=== PATIENT | female | born 1940 | race African-American/Black ===

== ENCOUNTER → 2016-07-31 | Outpatient (CLI) | payer OTHER ==
[2016-07-31 11:31] LABS: Basophils # (auto) 0 uL; Eosinophils # (auto) 0.1 uL; Eosinophils % (auto) 1.7 % (0.0-7.0); Hematocrit 39.9 % (36.0-46.0); Mean Corpuscular Hgb Conc. 32.5 g/dL (32.0-36.0); Mean Corpuscular Volume 89.1 fL (80.0-100.0); Mean Platelet Volume 8.3 fL (7.4-10.4); Monocytes # (auto) 0.2 uL; Monocytes % (auto) 8.5 % (0.0-12.0); Neutrophils # (auto) 1.6 uL; Neutrophils % (auto) 53.8 % (37.0-80.0); Platelet Count (auto) 240 10^3/uL (140-450); Red Cell Distribution Width 13.2 % (11.6-16.0); SUSPECT VIEW TRANSMISSION
== END | disposition home or self-care (01) ==
LOC: LAB 10:47
PROVIDERS: ATTEND Internal Medicine
DX: E88.09 Other disorders of plasma-protein metabolism, not elsewhere classified (principal)
CPT/HCPCS: 36415; 82232; 82378; 82784; 83615; 83883; 85025; 85652; 86334; 86335

== ENCOUNTER → 2016-08-14 | Outpatient (CLI) | payer OTHER | END | disposition home or self-care (01) | LOC: LAB 11:02 | PROVIDERS: ATTEND Internal Medicine | DX: E88.09 Other disorders of plasma-protein metabolism, not elsewhere classified (principal) | CPT/HCPCS: 84156 ==

== ENCOUNTER → 2016-09-11 | Outpatient (CLI) | payer OTHER | END | disposition home or self-care (01) | LOC: LAB 10:00 | PROVIDERS: ATTEND Internal Medicine | DX: D75.89 Other specified diseases of blood and blood-forming organs (principal) | CPT/HCPCS: 85097; 88360 ==

== ENCOUNTER → 2016-11-12 | Outpatient (CLI) | payer OTHER | END | disposition home or self-care (01) | LOC: XY 08:02 | PROVIDERS: ATTEND Internal Medicine | DX: R51 Headache (principal) | CPT/HCPCS: 78306; A9503 ==

== ENCOUNTER → 2017-02-17 | Outpatient (CLI) | payer OTHER ==
[2017-02-17 10:25] LABS: Basophils # (auto) 0 uL; Basophils % (auto) 1.3 % (0.0-2.0); CONDITION Y; Eosinophils # (auto) 0.1 uL; Eosinophils % (auto) 1.6 % (0.0-7.0); Hematocrit 37.8 % (36.0-46.0); Hemoglobin 12.4 g/dL (12.2-16.2); Lymphocytes # (auto) 1.1 uL; Lymphocytes % (auto) 33.5 % (10.0-50.0); Mean Corpuscular Hemoglobin 29.6 pg (28.0-32.0); Mean Corpuscular Hgb Conc. 32.8 g/dL (32.0-36.0); Mean Corpuscular Volume 90.4 fL (80.0-100.0); Mean Platelet Volume 8.4 fL (7.4-10.4); Monocytes # (auto) 0.2 uL; Monocytes % (auto) 7.3 % (0.0-12.0); Neutrophils # (auto) 1.9 uL; Neutrophils % (auto) 56.3 % (37.0-80.0); Platelet Count (auto) 246 10^3/uL (140-450); Red Cell Distribution Width 13.3 % (11.6-16.0); White Blood Cell 3.3 10^3/uL (4.4-10.8)
[2017-02-17 10:46] LABS: Albumin 3.8 g/dL (3.4-5.0); BUN/Creatinine Ratio 30.9; Bilirubin, Total 0.5 mg/dL (0.2-1.0); Calcium 8.9 mg/dL (8.5-10.1); Potassium 3.8 mmol/L (3.5-5.1); Total Protein 8.4 g/dL (6.4-8.2)
== END | disposition home or self-care (01) ==
LOC: LAB 09:57
PROVIDERS: ATTEND Internal Medicine
DX: D47.2 Monoclonal gammopathy (principal)
CPT/HCPCS: 36415; 80053; 82232; 82784; 83615; 83883; 85025

== ENCOUNTER → 2017-02-25 | Outpatient (CLI) | payer OTHER ==
[2017-02-25 09:22] LABS: Basophils # (auto) 0 uL; Basophils % (auto) 1.2 % (0.0-2.0); CONDITION Y; Eosinophils # (auto) 0.1 uL; Eosinophils % (auto) 2.2 % (0.0-7.0); Hematocrit 37.6 % (36.0-46.0); Hemoglobin 12.3 g/dL (12.2-16.2); Lymphocytes % (auto) 34.8 % (10.0-50.0); Mean Corpuscular Hemoglobin 29.5 pg (28.0-32.0); Mean Corpuscular Hgb Conc. 32.7 g/dL (32.0-36.0); Mean Corpuscular Volume 90.3 fL (80.0-100.0); Mean Platelet Volume 8.4 fL (7.4-10.4); Monocytes # (auto) 0.2 uL; Monocytes % (auto) 8.2 % (0.0-12.0); Neutrophils # (auto) 1.5 uL; Neutrophils % (auto) 53.6 % (37.0-80.0); Platelet Count (auto) 242 10^3/uL (140-450); Red Cell Distribution Width 13.3 % (11.6-16.0); SUSPECT SEE PRINTOUT; White Blood Cell 2.8 10^3/uL (4.4-10.8)
[2017-02-25 09:56] LABS: Albumin 3.8 g/dL (3.4-5.0); BUN/Creatinine Ratio 20.3; Bilirubin, Total 0.6 mg/dL (0.2-1.0); Calcium 8.7 mg/dL (8.5-10.1); Potassium 3.7 mmol/L (3.5-5.1); Total Protein 8.2 g/dL (6.4-8.2)
== END | disposition home or self-care (01) ==
LOC: LAB 08:04
PROVIDERS: ATTEND Internal Medicine
DX: R68.81 Early satiety (principal); E78.00 Pure hypercholesterolemia, unspecified
CPT/HCPCS: 36415; 80053; 80061; 84439; 84443; 85025

== ENCOUNTER → 2017-07-09 | Outpatient (CLI) | payer OTHER ==
[2017-07-09 11:00] LABS: Basophils # (auto) 0 uL; Basophils % (auto) 1.2 % (0.0-2.0); Eosinophils # (auto) 0 uL; Hematocrit 40.3 % (36.0-46.0); Lymphocytes # (auto) 0.9 uL; Lymphocytes % (auto) 23.5 % (10.0-50.0); Mean Corpuscular Hemoglobin 29.7 pg (28.0-32.0); Mean Corpuscular Hgb Conc. 32.3 g/dL (32.0-36.0); Mean Corpuscular Volume 91.8 fL (80.0-100.0); Monocytes # (auto) 0.2 uL; Monocytes % (auto) 5.5 % (0.0-12.0); Neutrophils # (auto) 2.6 uL; Neutrophils % (auto) 68.8 % (37.0-80.0); Platelet Count (auto) 244 10^3/uL (140-450); Red Cell Distribution Width 12.9 % (11.8-14.3); White Blood Cell 3.7 10^3/uL (4.4-10.8)
[2017-07-09 11:39] LABS: Albumin 3.9 g/dL (3.4-5.0); BUN/Creatinine Ratio 19.4; Bilirubin, Total 0.4 mg/dL (0.2-1.0); Calcium 8.8 mg/dL (8.5-10.1); Potassium 3.5 mmol/L (3.5-5.1); Total Protein 8.9 g/dL (6.4-8.2)
[2017-07-10 09:07] LABS: Kappa Lite Chain Free Serum 50.3 mg/L (3.3-19.4); Lambda Lite Chains Free Serum 14.3 mg/L (5.7-26.3)
== END | disposition home or self-care (01) ==
LOC: LAB 10:18
PROVIDERS: ATTEND Internal Medicine
DX: D47.2 Monoclonal gammopathy (principal)
CPT/HCPCS: 36415; 80053; 82232; 82784; 83615; 83883; 85025

== ENCOUNTER 2017-10-09 07:46 | Inpatient (IN) | payer OTHER ==
[~2017-10-09] VITALS: Ht 157.5 cm; Wt 51.9 kg
[2017-10-09] MEDS ORDERED: SODIUM CHLORIDE 0.9% 1,000 ML IV ONE (07:55)
[2017-10-09] MEDS ORDERED: LORazepam 2MG/ML-1ML VIAL IV ONE (08:00)
[2017-10-09] MEDS ORDERED: cloNIDine HCL 0.1 MG TAB PO ONE (08:45)
[2017-10-09 08:47] LABS: Basophils # (auto) 0 uL; Basophils % (auto) 1.5 % (0.0-2.0); Eosinophils # (auto) 0 uL; Eosinophils % (auto) 1.2 % (0.0-7.0); Hematocrit 42.8 % (36.0-46.0); Hemoglobin 13.8 g/dL (12.2-16.2); Lymphocytes # (auto) 0.7 uL; Lymphocytes % (auto) 28.9 % (10.0-50.0); Mean Corpuscular Hemoglobin 29.3 pg (28.0-32.0); Mean Corpuscular Hgb Conc. 32.3 g/dL (32.0-36.0); Mean Corpuscular Volume 90.8 fL (80.0-100.0); Monocytes # (auto) 0.2 uL; Monocytes % (auto) 7.4 % (0.0-12.0); Neutrophils # (auto) 1.5 uL; Nucleated Red Blood Cells % 0.2 %; Platelet Count (auto) 243 10^3/uL (140-450); Red Blood Cells 4.72 10^6/uL (4.0-5.20); Red Cell Distribution Width 12.8 % (11.8-14.3); White Blood Cell 2.5 10^3/uL (4.4-10.8)
[2017-10-09 08:50] LABS: Urine Amorphous Crystal FEW /hpf (None Seen); Urine Bacteria NONE SEEN /hpf (None Seen); Urine Blood Negative /uL (Negative); Urine Mucus FEW (None Seen); Urine Specific Gravity 1.011 (1.001-1.035); Urine WBC <1 /hpf (0 - 5)
[2017-10-09 08:59] LABS: INR 0.97 (0.9-1.15); Prothrombin Time 10.6 sec (9.37-12.3)
[2017-10-09 09:06] LABS: Alanine Aminotransferase 20 U/L (13-56); Albumin 4.1 g/dL (3.4-5.0); Alkaline Phosphatase 82 U/L (45-117); Anion Gap 10 (5-15); Aspartate Aminotransferase 18 U/L (15-37); BUN/Creatinine Ratio 16.1; Bilirubin, Total 0.6 mg/dL (0.2-1.0); Blood Urea Nitrogen 10 mg/dL (7-18); Calcium 8.9 mg/dL (8.5-10.1); Carbon Dioxide 24 mmol/L (21-32); Chloride 104 mmol/L (98-107); GFR African American 121 mL/min; GFR Non-African American 100 mL/min; Glucose 135 mg/dL (74-106); Magnesium 2.4 mg/dL (1.6-2.6); Potassium 3.5 mmol/L (3.5-5.1); Sodium 138 mmol/L (136-145); Total Protein 9.1 g/dL (6.4-8.2)
[2017-10-09] MEDS ORDERED: NITROGLYCERIN 0.4 MG SL TAB SL PRN (09:30)
[2017-10-09] MEDS ORDERED: MORPHINE SULFATE 4 MG/ML SYR/VIAL IV PRN ×2 (09:30)
[2017-10-09] MEDS ORDERED: HYDROcodone-ACET 5/325MG TAB PO PRN (09:30)
[2017-10-09] MEDS ORDERED: LACTULOSE 20Gm/30ML SOLN PO PRN (09:30)
[2017-10-09] MEDS ORDERED: DILTIAZEM HCL 60 MG TAB PO ONE (09:30)
[2017-10-09] MEDS ORDERED: ACETAMINOPHEN 500 MG TAB PO PRN (09:30)
[2017-10-09] MEDS ORDERED: LORazepam 0.5 MG TAB PO PRN (09:30)
[2017-10-09] MEDS ORDERED: TEMAZEPAM 15 MG CAP PO PRN (09:30)
[2017-10-09] MEDS ORDERED: PROMETHAZINE HCL 25 MG/ML 1ML IV PRN (09:30)
[2017-10-09] MEDS: ENOXAPARIN SOD 40 MG/0.4 ML SYRINGE SC SCH (09:53)
[2017-10-09] MEDS: LABETALOL HCL 5 MG/ML ML 20ML VIAL IV PRN (09:54)
[2017-10-09] MEDS: ASPirin 81 mg TAB PO SCH (09:57)
[2017-10-09] MEDS ORDERED: DILTIAZEM HCL 120MG ER CAP PO SCH (10:00)
[2017-10-09 10:08] LABS: Folate (Folic Acid) 17.59 ng/mL (5.38-24)
[2017-10-09 10:12] LABS: Cholesterol 233 mg/dL (< 200); Creatine Kinase IFCC 54 U/L (26-192); HDL Cholesterol 81 mg/dL (40-59); LDL Cholesterol 146 mg/dL (< 100); Triglycerides 91 mg/dL (< 150)
[2017-10-09] MEDS ORDERED: DILT-5 PO (12:48)
[2017-10-09] MEDS ORDERED: BRIM0.2S17 RIGHTEYE (15:24)
[2017-10-09] MEDS ORDERED: DORZ1SOL2 RIGHTEYE (15:24)
[2017-10-09 20:30] VITALS: BP 153/81
[2017-10-09] MEDS: ATORVASTATIN 20 MG TAB PO SCH (21:37)
[2017-10-09 22:00] VITALS: BP 147/81
[2017-10-10 05:00] VITALS: BP 157/89
[2017-10-10] MEDS ORDERED: BRIMONIDINE 0.2% OPTH Soln 5ml RIGHTEYE SCH (06:00)
[2017-10-10] MEDS: BRIMONIDINE 0.2% OPTH Soln 5ml RIGHTEYE SCH ×3 (08:47→21:44)
[2017-10-10] MEDS: DORZOLAM-TIMOLOL(2/0.5%) OPTH(EYE) SOLN 10ML RIGHTEYE SCH ×2 (08:48→21:44)
[2017-10-10 09:00] VITALS: BP 154/74
[2017-10-10] MEDS: ENOXAPARIN SOD 40 MG/0.4 ML SYRINGE SC SCH (09:58)
[2017-10-10] MEDS: ASPirin 81 mg TAB PO SCH (09:58)
[2017-10-10] MEDS: DILTIAZEM HCL 120MG ER CAP PO SCH (09:59)
[2017-10-10] MEDS ORDERED: DORZOLAM-TIMOLOL(2/0.5%) OPTH(EYE) SOLN 10ML RIGHTEYE SCH (10:00)
[2017-10-10] MEDS ORDERED: MECLIZINE HCL 25 MG TAB PO PRN (11:15)
[2017-10-10] MEDS ORDERED: MECLIZINE HCL 25 MG TAB PO ONE (11:15)
[2017-10-10 13:00] VITALS: BP 150/83
[2017-10-10 16:43] VITALS: BP 139/51
[2017-10-10 20:00] VITALS: BP 163/77
[2017-10-10 21:35] VITALS: BP 163/77
[2017-10-10] MEDS: ATORVASTATIN 20 MG TAB PO SCH (21:44)
[2017-10-10] MEDS: LABETALOL HCL 5 MG/ML ML 20ML VIAL IV PRN (23:29)
[2017-10-11 05:00] VITALS: BP 148/69
[2017-10-11 08:40] VITALS: BP 161/82
[2017-10-11] MEDS: BRIMONIDINE 0.2% OPTH Soln 5ml RIGHTEYE SCH ×3 (08:59→21:34)
[2017-10-11] MEDS: DORZOLAM-TIMOLOL(2/0.5%) OPTH(EYE) SOLN 10ML RIGHTEYE SCH ×2 (08:59→21:34)
[2017-10-11] MEDS: ENOXAPARIN SOD 40 MG/0.4 ML SYRINGE SC SCH (09:46)
[2017-10-11] MEDS: ASPirin 81 mg TAB PO SCH (09:46)
[2017-10-11] MEDS: DILTIAZEM HCL 120MG ER CAP PO SCH (10:25)
[2017-10-11 13:40] VITALS: BP 158/78
[2017-10-11 16:27] VITALS: BP 143/72
[2017-10-11 20:00] VITALS: BP 147/70
[2017-10-11] MEDS: ATORVASTATIN 20 MG TAB PO SCH (21:34)
[2017-10-11 21:37] VITALS: BP 147/70
[2017-10-12 04:55] VITALS: BP 145/78
[2017-10-12 09:08] VITALS: BP 152/78
[2017-10-12] MEDS: BRIMONIDINE 0.2% OPTH Soln 5ml RIGHTEYE SCH ×3 (09:32→22:06)
[2017-10-12] MEDS: DORZOLAM-TIMOLOL(2/0.5%) OPTH(EYE) SOLN 10ML RIGHTEYE SCH ×2 (09:32→22:07)
[2017-10-12] MEDS: ASPirin 81 mg TAB PO SCH (09:33)
[2017-10-12] MEDS: DILTIAZEM HCL 120MG ER CAP PO SCH (09:33)
[2017-10-12] MEDS: NIFEdipine ER 30 MG TAB PO SCH (09:34)
[2017-10-12] MEDS: ENOXAPARIN SOD 40 MG/0.4 ML SYRINGE SC SCH (09:35)
[2017-10-12 10:29] LABS: Free T3 2.91 pg/mL (2.3-4.2); Free T4 (Free Thyroxine) 0.96 ng/dL (0.89-1.76)
[2017-10-12 13:00] VITALS: BP 145/77
[2017-10-12 17:26] VITALS: BP 121/64
[2017-10-12 21:59] VITALS: BP 131/69
[2017-10-12] MEDS: ATORVASTATIN 20 MG TAB PO SCH (22:06)
[2017-10-13 04:56] VITALS: BP 130/66
[2017-10-13 06:24] LABS: Basophils # (auto) 0.1 uL; Basophils % (auto) 1.6 % (0.0-2.0); Eosinophils # (auto) 0.1 uL; Eosinophils % (auto) 2.3 % (0.0-7.0); Hematocrit 39.1 % (36.0-46.0); Hemoglobin 12.7 g/dL (12.2-16.2); Lymphocytes # (auto) 0.9 uL; Lymphocytes % (auto) 29.3 % (10.0-50.0); Mean Corpuscular Hemoglobin 29.2 pg (28.0-32.0); Mean Corpuscular Hgb Conc. 32.4 g/dL (32.0-36.0); Mean Corpuscular Volume 90.1 fL (80.0-100.0); Monocytes # (auto) 0.4 uL; Monocytes % (auto) 11.3 % (0.0-12.0); Neutrophils # (auto) 1.7 uL; Neutrophils % (auto) 55.5 % (37.0-80.0); Nucleated Red Blood Cells % 0.2 %; Platelet Count (auto) 242 10^3/uL (140-450); Red Blood Cells 4.34 10^6/uL (4.0-5.20); Red Cell Distribution Width 12.7 % (11.8-14.3); White Blood Cell 3.2 10^3/uL (4.4-10.8)
[2017-10-13 07:05] LABS: Albumin 3.5 g/dL (3.4-5.0); BUN/Creatinine Ratio 17.3; Bilirubin, Total 0.5 mg/dL (0.2-1.0); Calcium 8.4 mg/dL (8.5-10.1); Potassium 3.7 mmol/L (3.5-5.1); Total Protein 7.7 g/dL (6.4-8.2)
[2017-10-13] MEDS: BRIMONIDINE 0.2% OPTH Soln 5ml RIGHTEYE SCH ×2 (07:54→14:00)
[2017-10-13] MEDS: DORZOLAM-TIMOLOL(2/0.5%) OPTH(EYE) SOLN 10ML RIGHTEYE SCH (07:54)
[2017-10-13 08:00] VITALS: BP 142/75
[2017-10-13 08:40] VITALS: BP 142/75
[2017-10-13] MEDS: ASPirin 81 mg TAB PO SCH (09:08)
[2017-10-13] MEDS: NIFEdipine ER 30 MG TAB PO SCH (09:09)
[2017-10-13] MEDS: DILTIAZEM HCL 120MG ER CAP PO SCH (09:09)
[2017-10-13] MEDS: ENOXAPARIN SOD 40 MG/0.4 ML SYRINGE SC SCH (09:10)
[2017-10-13 11:11] VITALS: BP 142/75
[2017-10-13 12:21] VITALS: BP 128/68
== END 2017-10-13 14:20 | disposition home or self-care (01) | DRG 292 ==
LOC: EDUNIT# 07:46 → EDBD 07:46 → ER 07:46 → TELE 07:47 → TELE-CENTR 19:44
PROVIDERS: ADMIT Internal Medicine; ATTEND Internal Medicine
DX: I11.0 Hypertensive heart disease with heart failure (principal); H33.22 Serous retinal detachment, left eye; E78.5 Hyperlipidemia, unspecified; J98.11 Atelectasis; H83.09 Labyrinthitis, unspecified ear; I50.30 Unspecified diastolic (congestive) heart failure; I16.0 Hypertensive urgency; H40.9 Unspecified glaucoma; I70.0 Atherosclerosis of aorta; I08.0 Rheumatic disorders of both mitral and aortic valves; R26.9 Unspecified abnormalities of gait and mobility; H54.62 Unqualified visual loss, left eye, normal vision right eye; H91.90 Unspecified hearing loss, unspecified ear; Z79.899 Other long term (current) drug therapy; Z79.82 Long term (current) use of aspirin; Z90.49 Acquired absence of other specified parts of digestive tract
CPT/HCPCS: 36415; 70450; 70545; 70551; 71045; 80053; 80061; 81001; 82550; 82607; 82746; 83735; 84439; 84443; 84481; 84484; 85025; 85610; 85652; 85730; 93005; 93306; 93886; 94761; 96361; 96374; 97116; 97163; 97530

== ENCOUNTER → 2017-10-27 | Outpatient (CLI) | payer OTHER ==
[~2017-10-27] MED LIST: BRIM0.2S17 RIGHTEYE; DILT-5 PO; DORZ1SOL2 RIGHTEYE
[2017-10-27 14:53] LABS: Basophils # (auto) 0.1 uL; Eosinophils # (auto) 0.1 uL; Eosinophils % (auto) 2.7 % (0.0-7.0); Hematocrit 39.2 % (36.0-46.0); Hemoglobin 12.6 g/dL (12.2-16.2); Lymphocytes # (auto) 0.5 uL; Lymphocytes % (auto) 16.3 % (10.0-50.0); Mean Corpuscular Hgb Conc. 32.1 g/dL (32.0-36.0); Mean Corpuscular Volume 90.3 fL (80.0-100.0); Monocytes # (auto) 0.1 uL; Monocytes % (auto) 4.3 % (0.0-12.0); Neutrophils # (auto) 2.2 uL; Neutrophils % (auto) 74.7 % (37.0-80.0); Nucleated Red Blood Cells % 0.1 %; Platelet Count (auto) 242 10^3/uL (140-450); Red Blood Cells 4.34 10^6/uL (4.0-5.20); Red Cell Distribution Width 12.5 % (11.8-14.3); White Blood Cell 2.9 10^3/uL (4.4-10.8)
[2017-10-27 15:47] LABS: Albumin 3.7 g/dL (3.4-5.0); Bilirubin, Total 0.5 mg/dL (0.2-1.0); Calcium 8.7 mg/dL (8.5-10.1); Potassium 3.7 mmol/L (3.5-5.1)
== END | disposition home or self-care (01) ==
LOC: LAB 13:58
PROVIDERS: ATTEND Internal Medicine
DX: D47.2 Monoclonal gammopathy (principal)
CPT/HCPCS: 36415; 80053; 82232; 82784; 83615; 83883; 85025

== ENCOUNTER 2018-01-13 12:07 | Inpatient (IN) | payer OTHER ==
[~2018-01-13] VITALS: Ht 162.6 cm; Wt 48.1 kg
[2018-01-13 13:02] LABS: Basophils # (auto) 0 uL; Basophils % (auto) 1.1 % (0.0-2.0); Eosinophils # (auto) 0 uL; Hematocrit 39.2 % (36.0-46.0); Hemoglobin 12.9 g/dL (12.2-16.2); Lymphocytes # (auto) 0.8 uL; Lymphocytes % (auto) 21.3 % (10.0-50.0); Mean Corpuscular Hemoglobin 29.6 pg (28.0-32.0); Mean Corpuscular Hgb Conc. 32.9 g/dL (32.0-36.0); Monocytes # (auto) 0.2 uL; Monocytes % (auto) 5.7 % (0.0-12.0); Neutrophils # (auto) 2.6 uL; Neutrophils % (auto) 70.9 % (37.0-80.0); Nucleated Red Blood Cells % 0.1 %; Platelet Count (auto) 241 10^3/uL (140-450); Red Blood Cells 4.35 10^6/uL (4.0-5.20); Red Cell Distribution Width 13.1 % (11.8-14.3); White Blood Cell 3.6 10^3/uL (4.4-10.8)
[2018-01-13 13:24] LABS: Alanine Aminotransferase 16 U/L (13-56); Albumin 3.9 g/dL (3.4-5.0); Alkaline Phosphatase 73 U/L (45-117); Anion Gap 9 (5-15); Aspartate Aminotransferase 14 U/L (15-37); BUN/Creatinine Ratio 26.9; Bilirubin, Total 0.5 mg/dL (0.2-1.0); Blood Urea Nitrogen 14 mg/dL (7-18); Carbon Dioxide 25 mmol/L (21-32); Chloride 104 mmol/L (98-107); GFR African American 148 mL/min; GFR Non-African American 122 mL/min; Glucose 90 mg/dL (74-106); Magnesium 2.5 mg/dL (1.6-2.6); Potassium 3.4 mmol/L (3.5-5.1); Sodium 138 mmol/L (136-145); Total Protein 8.7 g/dL (6.4-8.2)
[2018-01-13 14:50] LABS: Urine WBC None Seen /hpf (0 - 5)
[2018-01-13 15:04] LABS: Urine Amorphous Crystal FEW /hpf (None Seen); Urine Bacteria NONE SEEN /hpf (None Seen); Urine Blood Negative /uL (Negative); Urine Specific Gravity 1.013 (1.001-1.035)
[2018-01-13 20:37] LABS: INR 0.96 (0.9-1.15); Partial Thromboplastin Time 27.1 sec (23.78-33.04); Prothrombin Time 10.3 sec (9.27-12.13)
[2018-01-13] MEDS ORDERED: HYDROcodone-ACET 5/325MG TAB PO PRN (22:00)
[2018-01-13] MEDS ORDERED: ACETAMINOPHEN 500 MG TAB PO PRN (22:00)
[2018-01-13] MEDS ORDERED: ONDANSETRON HCL 4 MG/2 ML VIAL IV PRN (22:00)
[2018-01-13] MEDS ORDERED: ATORVASTATIN 20 MG TAB PO SCH (22:00)
[2018-01-13] MEDS ORDERED: MORPHINE SULF(PF) 0.5MG/ML 10ML VIAL IV PRN (22:00)
[2018-01-13] MEDS ORDERED: NITROGLYCERIN 0.4 MG SL TAB SL PRN (22:00)
[2018-01-13] MEDS ORDERED: TEMAZEPAM 15 MG CAP PO PRN (22:00)
[2018-01-13 23:35] VITALS: BP 157/86
[2018-01-14 00:19] VITALS: BP 157/86
[2018-01-14] MEDS ORDERED: ATOR10TA52 PO (01:03)
[2018-01-14] MEDS ORDERED: CHLO25TA22 PO (01:04)
[2018-01-14] MEDS ORDERED: NIFE60TA59 PO (01:04)
[2018-01-14 05:02] VITALS: BP 153/73
[2018-01-14 06:13] LABS: Hematocrit 37.5 % (36.0-46.0); Hemoglobin 12.5 g/dL (12.2-16.2); Mean Corpuscular Hgb Conc. 33.4 g/dL (32.0-36.0); Platelet Count (auto) 199 10^3/uL (140-450); Red Blood Cells 4.17 10^6/uL (4.0-5.20); Red Cell Distribution Width 12.8 % (11.8-14.3); White Blood Cell 4.2 10^3/uL (4.4-10.8)
[2018-01-14 06:17] LABS: Band Neutrophils % (manual) 0; Basophils % (manual) 0 (0.0-2.0); Blast Cells 0; Metamyelocytes % 0; Myelocytes % 0; Promyelocytes % 0; Reactive Lymphocytes 0
[2018-01-14 06:28] LABS: Calcium 8.6 mg/dL (8.5-10.1); Potassium 3.6 mmol/L (3.5-5.1)
[2018-01-14 07:22] LABS: Eosinophils % (manual) 1 (0-7); Lymphocytes % (manual) 36 (10.0-50.0); Monocytes % (manual) 11 (0-12)
[2018-01-14 09:00] VITALS: BP 159/73
[2018-01-14] MEDS ORDERED: NIFEdipine ER 30 MG TAB PO SCH (10:00)
[2018-01-14] MEDS ORDERED: ASP81EC PO (10:03)
[2018-01-14 13:00] VITALS: BP 191/86
[2018-01-14] MEDS ORDERED: cloNIDine HCL 0.1 MG TAB PO ONE (13:30)
[2018-01-14 14:34] VITALS: BP 118/71
== END 2018-01-14 16:50 | disposition home or self-care (01) | DRG 309 ==
LOC: ER 12:10 → TELE 12:11 → TELE-WESTW 23:34
PROVIDERS: ADMIT Nurse Practitioner Family; ATTEND Family Medicine
DX: R00.2 Palpitations (principal); H33.22 Serous retinal detachment, left eye; E78.00 Pure hypercholesterolemia, unspecified; E78.5 Hyperlipidemia, unspecified; R42 Dizziness and giddiness; H40.9 Unspecified glaucoma; H54.62 Unqualified visual loss, left eye, normal vision right eye; H83.09 Labyrinthitis, unspecified ear; I10 Essential (primary) hypertension; Z83.3 Family history of diabetes mellitus
CPT/HCPCS: 36415; 70450; 71045; 80048; 80053; 81001; 83735; 83880; 84443; 84484; 85007; 85025; 85027; 85610; 85730; 93005; 94761

== ENCOUNTER → 2018-03-16 | Outpatient (CLI) | payer OTHER ==
[~2018-03-16] MED LIST changes: +ASP81EC PO; +ATOR10TA52 PO; +CHLO25TA22 PO; -DILT-5 PO; +NIFE60TA59 PO
== END | disposition home or self-care (01) ==
LOC: LAB 13:34
PROVIDERS: ATTEND Internal Medicine
DX: R93.8 Abnormal findings on diagnostic imaging of other specified body structures (principal)
CPT/HCPCS: 36415; 82565; 84520

== ENCOUNTER 2018-03-21 08:18 | Emergency (ER) | payer OTHER ==
[~2018-03-21] VITALS: Ht 162.6 cm; Wt 47.6 kg
[2018-03-21 10:51] LABS: Basophils # (auto) 0.1 uL; Basophils % (auto) 2.5 % (0.0-2.0); Eosinophils # (auto) 0.1 uL; Hematocrit 42.7 % (36.0-46.0); Hemoglobin 14.1 g/dL (12.2-16.2); Lymphocytes # (auto) 1.2 uL; Mean Corpuscular Hemoglobin 29.9 pg (28.0-32.0); Mean Corpuscular Hgb Conc. 33.1 g/dL (32.0-36.0); Mean Corpuscular Volume 90.4 fL (80.0-100.0); Monocytes # (auto) 0.3 uL; Monocytes % (auto) 8.8 % (0.0-12.0); Neutrophils # (auto) 1.9 uL; Neutrophils % (auto) 52.7 % (37.0-80.0); Nucleated Red Blood Cells % 0.1 %; Platelet Count (auto) 243 10^3/uL (140-450); Red Blood Cells 4.72 10^6/uL (4.0-5.20); Red Cell Distribution Width 13.4 % (11.8-14.3); White Blood Cell 3.6 10^3/uL (4.4-10.8)
[2018-03-21 11:12] LABS: Alanine Aminotransferase 21 U/L (13-56); Albumin 4.3 g/dL (3.4-5.0); Alkaline Phosphatase 81 U/L (45-117); Anion Gap 11 (5-15); Aspartate Aminotransferase 20 U/L (15-37); BUN/Creatinine Ratio 20.3; Bilirubin, Total 0.6 mg/dL (0.2-1.0); Blood Urea Nitrogen 14 mg/dL (7-18); Calcium 8.9 mg/dL (8.5-10.1); Carbon Dioxide 23 mmol/L (21-32); Chloride 105 mmol/L (98-107); GFR African American 107 mL/min; GFR Non-African American 88 mL/min; Glucose 101 mg/dL (74-106); Potassium 3.8 mmol/L (3.5-5.1); Sodium 139 mmol/L (136-145); Total Protein 9.7 g/dL (6.4-8.2)
[2018-03-21] MEDS ORDERED: SODIUM CHLORIDE 0.9% 1,000 ML IV ONE (11:55)
[2018-03-21 12:31] LABS: Urine Bacteria NONE SEEN /hpf (None Seen); Urine Blood Negative /uL (Negative); Urine Mucus FEW (None Seen); Urine Specific Gravity 1.018 (1.001-1.035); Urine WBC <1 /hpf (0 - 5)
[2018-03-21 12:37] LABS: Alcohol, Urine < 3.0 mg/dL (0-5); Amphetamine Screen, Urine NEGATIVE (NEGATIVE); Barbiturate Scree,Urine NEGATIVE (NEGATIVE); Benzodiazephine Screen, Urine NEGATIVE (NEGATIVE); Cannabinoid Screen, Urine NEGATIVE (NEGATIVE); Cocaine Screen, Urine NEGATIVE (NEGATIVE); Opiate Scree,Urine NEGATIVE (NEGATIVE); Phencyclidine Screen, Urine NEGATIVE (NEGATIVE)
[2018-03-21 14:17] VITALS: BP 141/77
[2018-03-21] MEDS ORDERED: MECLIZINE HCL 25 MG TAB PO ONE (15:15)
== END 2018-03-21 15:30 | disposition home or self-care (01) ==
LOC: ER 08:18
DX: H81.12 Benign paroxysmal vertigo, left ear (principal); H54.0X55 Blindness right eye category 5, blindness left eye category 5; H40.9 Unspecified glaucoma; E78.5 Hyperlipidemia, unspecified; I10 Essential (primary) hypertension
CPT/HCPCS: 36415; 70450; 71046; 80053; 80307; 81001; 84443; 84484; 85025; 93005; 94761; 96360; 96361; 99285; J7030; J8597

== ENCOUNTER → 2018-04-28 | Outpatient (CLI) | payer OTHER ==
[2018-04-28 11:48] LABS: Basophils # (auto) 0 uL; Basophils % (auto) 0.2 % (0.0-2.0); Eosinophils # (auto) 0 uL; Eosinophils % (auto) 1.5 % (0.0-7.0); Hematocrit 39.4 % (36.0-46.0); Hemoglobin 13.2 g/dL (12.2-16.2); Lymphocytes # (auto) 0.9 uL; Lymphocytes % (auto) 28.8 % (10.0-50.0); Mean Corpuscular Hemoglobin 30.1 pg (28.0-32.0); Mean Corpuscular Hgb Conc. 33.5 g/dL (32.0-36.0); Mean Corpuscular Volume 89.7 fL (80.0-100.0); Monocytes # (auto) 0.2 uL; Neutrophils # (auto) 1.9 uL; Neutrophils % (auto) 61.5 % (37.0-80.0); Nucleated Red Blood Cells % 0.2 %; Platelet Count (auto) 241 10^3/uL (140-450); Red Blood Cells 4.39 10^6/uL (4.0-5.20); Red Cell Distribution Width 12.8 % (11.8-14.3); White Blood Cell 3.1 10^3/uL (4.4-10.8)
[2018-04-28 12:24] LABS: Albumin 4.1 g/dL (3.4-5.0); BUN/Creatinine Ratio 25.4; Bilirubin, Total 0.6 mg/dL (0.2-1.0); Calcium 9.3 mg/dL (8.5-10.1); Potassium 3.5 mmol/L (3.5-5.1); Total Protein 9.1 g/dL (6.4-8.2)
== END | disposition home or self-care (01) ==
LOC: LAB 10:56
PROVIDERS: ATTEND Internal Medicine
DX: E03.9 Hypothyroidism, unspecified (principal); E78.5 Hyperlipidemia, unspecified; D70.8 Other neutropenia; I10 Essential (primary) hypertension; E78.00 Pure hypercholesterolemia, unspecified
CPT/HCPCS: 36415; 80053; 80061; 82232; 82784; 83615; 84439; 84443; 85025

== ENCOUNTER → 2018-11-24 | Outpatient (CLI) | payer OTHER ==
[2018-11-24 11:15] LABS: Basophils # (auto) 0 uL; Basophils % (auto) 1.4 % (0.0-2.0); Eosinophils # (auto) 0.1 uL; Eosinophils % (auto) 2.5 % (0.0-7.0); Hematocrit 37.7 % (36.0-46.0); Hemoglobin 12.4 g/dL (12.2-16.2); Lymphocytes # (auto) 0.9 uL; Lymphocytes % (auto) 40.8 % (10.0-50.0); Mean Corpuscular Hemoglobin 29.5 pg (28.0-32.0); Mean Corpuscular Hgb Conc. 32.8 g/dL (32.0-36.0); Mean Corpuscular Volume 89.8 fL (80.0-100.0); Monocytes # (auto) 0.2 uL; Monocytes % (auto) 8.3 % (0.0-12.0); Neutrophils # (auto) 1.1 uL; Nucleated Red Blood Cells % 0.1 %; Platelet Count (auto) 198 10^3/uL (140-450); Red Blood Cells 4.19 10^6/uL (4.0-5.20); White Blood Cell 2.3 10^3/uL (4.4-10.8)
[2018-11-24 11:50] LABS: Albumin 3.9 g/dL (3.4-5.0); Potassium 4.1 mmol/L (3.5-5.1)
[2018-11-24 11:54] LABS: BUN/Creatinine Ratio 13.4; Bilirubin, Total 0.5 mg/dL (0.2-1.0); Total Protein 8.5 g/dL (6.4-8.2)
== END | disposition home or self-care (01) ==
LOC: LAB 10:49
PROVIDERS: ATTEND Internal Medicine
DX: D72.819 Decreased white blood cell count, unspecified (principal); D47.2 Monoclonal gammopathy
CPT/HCPCS: 36415; 80053; 82232; 82784; 83615; 83883; 85025; 86334

== ENCOUNTER → 2019-06-10 | Outpatient (CLI) | payer OTHER ==
[2019-06-10 10:17] LABS: Basophils # (auto) 0 uL; Basophils % (auto) 1.1 % (0.0-2.0); Eosinophils # (auto) 0.1 uL; Hematocrit 36.3 % (36.0-46.0); Hemoglobin 11.8 g/dL (12.2-16.2); Lymphocytes # (auto) 0.9 uL; Lymphocytes % (auto) 34.6 % (10.0-50.0); Mean Corpuscular Hemoglobin 29.7 pg (28.0-32.0); Mean Corpuscular Hgb Conc. 32.6 g/dL (32.0-36.0); Monocytes # (auto) 0.3 uL; Monocytes % (auto) 10.4 % (0.0-12.0); Neutrophils # (auto) 1.4 uL; Neutrophils % (auto) 51.9 % (37.0-80.0); Nucleated Red Blood Cells % 0.1 %; Platelet Count (auto) 209 10^3/uL (140-450); Red Blood Cells 3.99 10^6/uL (4.0-5.20); Red Cell Distribution Width 13.1 % (11.8-14.3); White Blood Cell 2.7 10^3/uL (4.4-10.8)
[2019-06-11 07:06] LABS: Immunoglobulin G, Serum 1850 mg/dL (700-1600)
[2019-06-13 14:31] LABS: Albumin 3.7 g/dL (3.4-5.0); Calcium 8.7 mg/dL (8.5-10.1); Potassium 4.1 mmol/L (3.5-5.1)
[2019-06-13 14:34] LABS: Bilirubin, Total 0.3 mg/dL (0.2-1.0); Total Protein 7.4 g/dL (6.4-8.2)
== END | disposition home or self-care (01) ==
LOC: LAB 09:49
PROVIDERS: ATTEND Internal Medicine
DX: D72.819 Decreased white blood cell count, unspecified (principal); E78.5 Hyperlipidemia, unspecified; I10 Essential (primary) hypertension
CPT/HCPCS: 36415; 80053; 82232; 82378; 82784; 83615; 83883; 85025; 86334

== ENCOUNTER → 2021-01-09 | Outpatient (CLI) | payer OTHER, MEDICARE ==
[~2021-01-09] MED LIST changes: -ASP81EC PO; +ASPI-394 PO; +CHLO25TA2 PO; -CHLO25TA22 PO; +NIFE1TAB30 PO; -NIFE60TA59 PO
[2021-01-09 13:08] LABS: Basophils # (auto) 0.1 10 ^3/uL (0-0.2); Basophils % (auto) 1.8 % (0.0-2.0); Eosinophils # (auto) 0 10 ^3/uL (0-0.8); Eosinophils % (auto) 1.7 % (0.0-7.0); Hematocrit 36.3 % (36.0-46.0); Hemoglobin 11.8 g/dL (12.2-16.2); Lymphocytes # (auto) 1.1 10 ^3/uL (0.4-5.4); Lymphocytes % (auto) 39.1 % (10.0-50.0); Mean Corpuscular Hemoglobin 29.1 pg (28.0-32.0); Mean Corpuscular Hgb Conc. 32.6 g/dL (32.0-36.0); Mean Corpuscular Volume 89.5 fL (80.0-100.0); Monocytes # (auto) 0.3 10 ^3/uL (0-1.3); Monocytes % (auto) 9.6 % (0.0-12.0); Neutrophils # (auto) 1.4 10 ^3/uL (1.6-8.6); Neutrophils % (auto) 47.8 % (37.0-80.0); Nucleated Red Blood Cells % 0.1 %; Platelet Count (auto) 232 10^3/uL (140-450); Red Blood Cells 4.05 10^6/uL (4.0-5.20); White Blood Cell 2.9 10^3/uL (4.4-10.8)
[2021-01-09 13:24] LABS: Urine Bacteria FEW /hpf (None Seen); Urine Blood Negative /uL (Negative); Urine Mucus FEW (None Seen); Urine Specific Gravity 1.023 (1.001-1.035); Urine WBC 3 /hpf (0 - 5)
[2021-01-09 14:04] LABS: Albumin 3.5 g/dL (3.4-5.0); Calcium 8.7 mg/dL (8.5-10.1); Potassium 4.1 mmol/L (3.5-5.1)
[2021-01-09 14:10] LABS: Bilirubin, Total 0.7 mg/dL (0.2-1.0); Folate (Folic Acid) 21.66 ng/mL (5.38-24); Total Protein 8.1 g/dL (6.4-8.2)
[2021-01-09 14:20] LABS: Free T4 (Free Thyroxine) 0.78 ng/dL (0.89-1.76)
== END | disposition home or self-care (01) ==
LOC: LAB 12:33
PROVIDERS: ATTEND Internal Medicine
DX: I10 Essential (primary) hypertension (principal); E78.5 Hyperlipidemia, unspecified; H54.7 Unspecified visual loss; H40.1113 Primary open-angle glaucoma, right eye, severe stage
CPT/HCPCS: 36415; 80053; 80061; 81001; 82164; 82607; 82746; 84439; 84443; 85025; 85652

== ENCOUNTER → 2021-02-05 | Outpatient (CLI) | payer OTHER, MEDICARE | END | disposition home or self-care (01) | LOC: LAB 09:39 | PROVIDERS: ATTEND Internal Medicine | DX: Z01.812 Encounter for preprocedural laboratory examination (principal); D72.819 Decreased white blood cell count, unspecified | CPT/HCPCS: 36415; 82565; 83540; 84520; 86225; 86235 ==

== ENCOUNTER 2021-06-30 09:04 | Emergency (ER) | payer OTHER ==
[~2021-06-30] VITALS: Ht 162.6 cm; Wt 46.7 kg
[2021-06-30 09:18] VITALS: BP 143/62
== END 2021-06-30 11:09 | disposition home or self-care (01) ==
LOC: ER 09:04
DX: S90.31XA Contusion of right foot, initial encounter (principal); E78.5 Hyperlipidemia, unspecified; I10 Essential (primary) hypertension; W01.0XXA Fall on same level from slipping, tripping and stumbling without subsequent striking against object, initial encounter; Y93.89 Activity, other specified; Y92.89 Other specified places as the place of occurrence of the external cause; Y99.8 Other external cause status
CPT/HCPCS: 73630

== ENCOUNTER → 2021-09-11 | Outpatient (CLI) | payer OTHER ==
[2021-09-17 10:07] LABS: Methylmalonic Acid 146 nmol/L (0-378)
== END | disposition home or self-care (01) ==
LOC: LAB 09:47
PROVIDERS: ATTEND Ophthalmology Neuro-ophthalmology
DX: H40.1113 Primary open-angle glaucoma, right eye, severe stage (principal); H54.7 Unspecified visual loss; Z90.49 Acquired absence of other specified parts of digestive tract

== ENCOUNTER → 2021-10-15 | Outpatient (CLI) | payer MEDICARE, OTHER ==
[2021-10-15 09:51] LABS: Basophils # (auto) 0 10 ^3/uL (0-0.2); Basophils % (auto) 0.2 % (0.0-2.0); Eosinophils # (auto) 0.1 10 ^3/uL (0-0.8); Hematocrit 35.4 % (36.0-46.0); Hemoglobin 11.9 g/dL (12.2-16.2); Mean Corpuscular Hemoglobin 29.9 pg (28.0-32.0); Mean Corpuscular Hgb Conc. 33.5 g/dL (32.0-36.0); Monocytes # (auto) 0.3 10 ^3/uL (0-1.3); Monocytes % (auto) 8.8 % (0.0-12.0); Neutrophils # (auto) 1.6 10 ^3/uL (1.6-8.6); Nucleated Red Blood Cells % 0.2 %; Red Blood Cells 3.98 10^6/uL (4.0-5.20); Red Cell Distribution Width 12.9 % (11.8-14.3); White Blood Cell 2.9 10^3/uL (4.4-10.8)
[2021-10-15 10:57] LABS: Potassium 3.9 mmol/L (3.5-5.1)
[2021-10-15 11:13] LABS: Albumin 3.4 g/dL (3.4-5.0); BUN/Creatinine Ratio 15.8; Bilirubin, Total 0.5 mg/dL (0.2-1.0); Calcium 8.6 mg/dL (8.5-10.1)
[2021-10-16 07:07] LABS: Immunoglobulin G, Serum 2552 mg/dL (586-1602)
== END | disposition home or self-care (01) ==
LOC: LAB 09:24
PROVIDERS: ATTEND Internal Medicine
DX: I10 Essential (primary) hypertension (principal); R07.89 Other chest pain
CPT/HCPCS: 36415; 80053; 82784; 85025; 86334

== ENCOUNTER → 2022-03-19 | Outpatient (CLI) | payer OTHER ==
[2022-03-19 10:58] LABS: Urine Bacteria NONE SEEN /hpf (None Seen); Urine Blood Negative /uL (Negative); Urine Hyaline Cast FEW /lpf (0 - 2); Urine Mucus FEW (None Seen); Urine WBC 3 /hpf (0 - 5)
[2022-03-19 11:02] LABS: Basophils # (auto) 0 10 ^3/uL (0-0.2); Basophils % (auto) 1.2 % (0.0-2.0); Eosinophils # (auto) 0.1 10 ^3/uL (0-0.8); Eosinophils % (auto) 1.8 % (0.0-7.0); Hematocrit 35.3 % (36.0-46.0); Lymphocytes # (auto) 1.1 10 ^3/uL (0.4-5.4); Lymphocytes % (auto) 37.5 % (10.0-50.0); Mean Corpuscular Hemoglobin 28.4 pg (28.0-32.0); Mean Corpuscular Hgb Conc. 31.3 g/dL (32.0-36.0); Mean Corpuscular Volume 90.8 fL (80.0-100.0); Monocytes # (auto) 0.3 10 ^3/uL (0-1.3); Monocytes % (auto) 10.2 % (0.0-12.0); Neutrophils # (auto) 1.4 10 ^3/uL (1.6-8.6); Neutrophils % (auto) 49.3 % (37.0-80.0); Nucleated Red Blood Cells % 0.1 %; Red Blood Cells 3.89 10^6/uL (4.0-5.20); Red Cell Distribution Width 13.5 % (11.8-14.3); White Blood Cell 2.8 10^3/uL (4.4-10.8)
[2022-03-19 11:33] LABS: Albumin 3.5 g/dL (3.4-5.0); Calcium 8.9 mg/dL (8.5-10.1); Potassium 4.2 mmol/L (3.5-5.1)
[2022-03-19 11:38] LABS: BUN/Creatinine Ratio 24.6; Bilirubin, Total 0.7 mg/dL (0.2-1.0); Total Protein 7.8 g/dL (6.4-8.2)
== END | disposition home or self-care (01) ==
LOC: LAB 10:06
PROVIDERS: ATTEND Student in an Organized Health Care Education/Training Program
DX: Z11.1 Encounter for screening for respiratory tuberculosis (principal); K76.9 Liver disease, unspecified; I10 Essential (primary) hypertension
CPT/HCPCS: 36415; 80053; 80061; 81001; 82105; 84439; 84443; 85025

== ENCOUNTER → 2022-05-15 | Outpatient (CLI) | payer OTHER ==
[2022-05-15 11:20] LABS: Basophils # (auto) 0 10 ^3/uL (0-0.2); Basophils % (auto) 1.2 % (0.0-2.0); Eosinophils # (auto) 0.1 10 ^3/uL (0-0.8); Eosinophils % (auto) 2.1 % (0.0-7.0); Hematocrit 35.9 % (36.0-46.0); Hemoglobin 11.4 g/dL (12.2-16.2); Lymphocytes % (auto) 35.5 % (10.0-50.0); Mean Corpuscular Hemoglobin 28.8 pg (28.0-32.0); Mean Corpuscular Hgb Conc. 31.9 g/dL (32.0-36.0); Mean Corpuscular Volume 90.5 fL (80.0-100.0); Monocytes # (auto) 0.3 10 ^3/uL (0-1.3); Monocytes % (auto) 10.8 % (0.0-12.0); Neutrophils # (auto) 1.4 10 ^3/uL (1.6-8.6); Neutrophils % (auto) 50.4 % (37.0-80.0); Nucleated Red Blood Cells % 0.1 %; Red Blood Cells 3.96 10^6/uL (4.0-5.20); Red Cell Distribution Width 13.2 % (11.8-14.3); White Blood Cell 2.8 10^3/uL (4.4-10.8)
[2022-05-15 11:44] LABS: Albumin 3.6 g/dL (3.4-5.0); Calcium 8.4 mg/dL (8.5-10.1); Potassium 4.1 mmol/L (3.5-5.1); Uric Acid 2.7 mg/dL (2.6-6.0)
[2022-05-15 11:47] LABS: BUN/Creatinine Ratio 24.1; Bilirubin, Total 0.5 mg/dL (0.2-1.0); Total Protein 8.7 g/dL (6.4-8.2)
[2022-05-16 07:07] LABS: Immunoglobulin G, Serum 2880 mg/dL (586-1602)
== END | disposition home or self-care (01) ==
LOC: LAB 10:37
PROVIDERS: ATTEND Internal Medicine
DX: D47.2 Monoclonal gammopathy (principal)
CPT/HCPCS: 36415; 80053; 82784; 83615; 83883; 84155; 84165; 84550; 85025

== ENCOUNTER → 2022-12-01 | Outpatient (CLI) | payer OTHER, MEDICARE ==
[2022-12-01 10:15] LABS: Basophils # (auto) 0 10 ^3/uL (0-0.2); Basophils % (auto) 1.3 % (0.0-2.0); Eosinophils # (auto) 0 10 ^3/uL (0-0.8); Eosinophils % (auto) 1.6 % (0.0-7.0); Hematocrit 36.5 % (36.0-46.0); Hemoglobin 11.8 g/dL (12.2-16.2); Lymphocytes # (auto) 1.1 10 ^3/uL (0.4-5.4); Lymphocytes % (auto) 38.2 % (10.0-50.0); Mean Corpuscular Hgb Conc. 32.3 g/dL (32.0-36.0); Mean Corpuscular Volume 89.6 fL (80.0-100.0); Monocytes # (auto) 0.3 10 ^3/uL (0-1.3); Monocytes % (auto) 9.5 % (0.0-12.0); Neutrophils # (auto) 1.4 10 ^3/uL (1.6-8.6); Neutrophils % (auto) 49.4 % (37.0-80.0); Nucleated Red Blood Cells % 0.1 %; Red Blood Cells 4.07 10^6/uL (4.0-5.20); Red Cell Distribution Width 13.1 % (11.8-14.3); White Blood Cell 2.8 10^3/uL (4.4-10.8)
[2022-12-01 11:18] LABS: Albumin 3.5 g/dL (3.4-5.0); BUN/Creatinine Ratio 27.3 (10.0-20.0); Bilirubin, Total 0.5 mg/dL (0.2-1.0); Calcium 8.6 mg/dL (8.5-10.1); Total Protein 8.2 g/dL (6.4-8.2); Uric Acid 3.8 mg/dL (2.6-6.0)
[2022-12-02 09:07] LABS: Immunoglobulin G, Serum 2560 mg/dL (586-1602)
== END | disposition home or self-care (01) ==
LOC: LAB 09:59
PROVIDERS: ATTEND Internal Medicine
DX: D47.2 Monoclonal gammopathy (principal)
CPT/HCPCS: 36415; 80053; 82784; 83615; 83883; 84155; 84165; 84550; 85025

== ENCOUNTER → 2023-02-27 | Outpatient (CLI) | payer OTHER, MEDICARE ==
[2023-02-27 11:37] LABS: Basophils # (auto) 0 10 ^3/uL (0-0.2); Eosinophils # (auto) 0.1 10 ^3/uL (0-0.8); Eosinophils % (auto) 1.7 % (0.0-7.0); Hematocrit 35.3 % (36.0-46.0); Hemoglobin 11.4 g/dL (12.2-16.2); Lymphocytes # (auto) 1.1 10 ^3/uL (0.4-5.4); Lymphocytes % (auto) 35.9 % (10.0-50.0); Mean Corpuscular Hemoglobin 29.4 pg (28.0-32.0); Mean Corpuscular Hgb Conc. 32.3 g/dL (32.0-36.0); Mean Corpuscular Volume 90.9 fL (80.0-100.0); Monocytes # (auto) 0.3 10 ^3/uL (0-1.3); Monocytes % (auto) 9.9 % (0.0-12.0); Neutrophils # (auto) 1.5 10 ^3/uL (1.6-8.6); Neutrophils % (auto) 51.5 % (37.0-80.0); Red Blood Cells 3.89 10^6/uL (4.0-5.20); Red Cell Distribution Width 13.2 % (11.8-14.3)
[2023-02-27 12:11] LABS: Ferritin 113.4 ng/mL (10-322)
[2023-02-27 12:12] LABS: Folate (Folic Acid) 18.62 ng/mL (5.38-24)
[2023-02-27 13:03] LABS: Albumin 3.4 g/dL (3.4-5.0); Calcium 8.3 mg/dL (8.5-10.1); Potassium 3.6 mmol/L (3.5-5.1)
[2023-02-27 13:08] LABS: Bilirubin, Total 0.6 mg/dL (0.2-1.0); Total Protein 8.5 g/dL (6.4-8.2)
== END | disposition home or self-care (01) ==
LOC: LAB 10:59
PROVIDERS: ATTEND Internal Medicine
DX: D47.2 Monoclonal gammopathy (principal)
CPT/HCPCS: 36415; 80053; 82607; 82728; 82746; 83540; 83615; 85025

== ENCOUNTER 2025-05-26 20:28 | Inpatient (IN) | payer MEDICAID, MEDICARE ==
[~2025-05-26] VITALS: Ht 170.2 cm; Wt 37.0 kg
[2025-05-26] MEDS: SODIUM CHLORIDE 0.9% 1,000 ML IV ONE (03:38)
[2025-05-26 21:32] LABS: Hematocrit 40.5 % (36.0-46.0); Hemoglobin 13.2 g/dL (12.2-16.2); Mean Corpuscular Hemoglobin 29.8 pg (28.0-32.0); Mean Corpuscular Volume 91.2 fL (80.0-100.0); Nucleated Red Blood Cells % 0.1 %
--- NOTE | 2025-05-26 21:36 | ED.PDOC ---
HPI (NEURO) Chief Complaint: Fever Primary Care Provider: GREGORIO Mode of Arrival: EMS Past Medical History PAST MEDICAL HISTORY: High Lipids, HTN Surgical History: Denies all surgeries ACCOUNTS SUPERVISOR History: No Pertinent ACCOUNTS SUPERVISOR History Family History Family History: Unknown Social History Smoker: Non-Smoker Alcohol: Denies ETOH Use Drugs: Denies Drug Use Lives In: Home X-Ray, Labs, Meds, VS Vital Signs Date Time Temp Pulse Resp B/P (MAP) Pulse Ox O2 Delivery O2 Flow Rate FiO2 05/26/25 20:29 97.9 110 20 157/76 96 97.9 Lab Test 05/26/25 21:05 Range/Units White Blood Count 5.1 4.4-10.8 10^3/uL Red Blood Count 4.44 4.0-5.20 10^6/uL Hemoglobin 13.2 12.2-16.2 g/dL Hematocrit 40.5 36.0-46.0 % Mean Corpuscular Volume 91.2 80.0-100.0 fL Mean Corpuscular Hemoglobin 29.8 28.0-32.0 pg Mean Corpuscular Hemoglobin Concent 32.7 32.0-36.0 g/dL Red Cell Distribution Width 13.6 11.8-14.3 % Platelet Count 297 140-450 10^3/uL Mean Platelet Volume 7.7 6.9-10.8 fL Neutrophils (%) (Auto) 68.8 37.0-80.0 % Lymphocytes (%) (Auto) 24.4 10.0-50.0 % Monocytes (%) (Auto) 5.1 0.0-12.0 % Eosinophils (%) (Auto) 1.1 0.0-7.0 % Basophils (%) (Auto) 0.6 0.0-2.0 % Neutrophils # (Auto) 3.5 1.6-8.6 10 ^3/uL Lymphocytes # (Auto) 1.3 0.4-5.4 10 ^3/uL Monocytes # (Auto) 0.3 0-1.3 10 ^3/uL Eosinophils # (Auto) 0.1 0-0.8 10 ^3/uL Basophils # (Auto) 0 0-0.2 10 ^3/uL Nucleated Red Blood Cells 0.1 % Sodium Level Pending Potassium Level Pending Chloride Level Pending Carbon Dioxide Level Pending Anion Gap Pending Blood Urea Nitrogen Pending Creatinine Pending Glomerular Filtration Rate Calc Pending BUN/Creatinine Ratio Pending Serum Glucose Pending Lactic Acid Level Pending Calcium Level Pending Total Bilirubin Pending Aspartate Amino Transferase (AST) Pending Alanine Aminotransferase (ALT) Pending Alkaline Phosphatase Pending Troponin I High Sensitivity Pending Total Protein Pending Albumin Pending Critical Care Note Critical Care Time?: No I personally scribed for MARIE SEPULVEDA DO ([email or web address]) on 05/26/25 at 21:36. Electronically submitted by Wolf Langston [email or web address]). I personally scribed for MARIE SEPULVEDA DO ([email or web address]) on 05/26/25 at 21:39. Electronically submitted by Wolf Langston ([email or web address]). MARIE SEPULVEDA DO May 26, 2025 21:36
[2025-05-26 21:39] LABS: Alanine Aminotransferase 27 U/L (7-40); Albumin 4.5 g/dL (3.2-4.8); Alkaline Phosphatase 81 U/L (46-116); Anion Gap 12 (5-15); BUN/Creatinine Ratio 12.7 (10.0-20.0); Bilirubin, Total 0.5 mg/dL (0.2-1.0); Blood Urea Nitrogen 10 mg/dL (9-23); Calcium 9.1 mg/dL (8.7-10.4); Carbon Dioxide 24 mmol/L (20-31); Sodium 143 mmol/L (136-145)
[2025-05-26 21:42] LABS: Chloride 107 mmol/L (98-107); Glucose 197 mg/dL (74-106); Potassium 3.4 mmol/L (3.5-5.1); Total Protein 9.7 g/dL (5.7-8.2)
--- NOTE | 2025-05-26 21:44 | DVH ---
CHEST RADIOGRAPH Indication: fever Technique: Single frontal view of the chest was obtained COMPARISON: None FINDINGS: Cardiac silhouette is enlarged. Mild diffuse prominence of the pulmonary vasculature. Suspect mild bronchial wall thickening. No dense focal airspace disease. No significant pleural effusions or pneu mothorax. Bones and soft tissues demonstrate no significant abnormality. Prominent gastric bubble noted. IMPRESSION: Cardiomegaly with mild pulmonary venous congestion. Suspect mild interstitial thickening /bronchial wall thickening which may suggest a bronchiolitis or viral pneumonia. No evidence for a lobar pneumonia.
[2025-05-26 21:45] LABS: Lactic Acid w/Reflex 3.1 mmol/L (0.4-2.0)
--- NOTE | 2025-05-26 22:17 | ED.PDOC ---
HPI (NEURO) HPI Comments 85 y/o F is BIBA with daughter for c/c of shaking and tremors. Per daughter, patient was outside when she, suddenly screamed and then began experiencing symptoms. No reported fall trauma or injuries. Patient is stated to have been fine all day, earlier. No history of similar events in the past. Denies any chest pain, shortness of breath, or further acute symptoms. Past medical history: heart murmur, HLD, HTN, osteoporosis Past surgical history: abdominal surgery HPI: Poor Historian. Daughter states that the patient is so weak she could not get up and ambulate. No fall or trauma or injury. REVIEW OF SYSTEMS: CONSTITUTIONAL: Denies acute: diaphoresis, HEAD: Denies acute: headache, photophobia Eyes: Denies acute: Double vision, vision loss, eye pain, eye discharge. EARS: Denies acute: tinnitus, hearing loss, ear discharge, ear pain, THROAT: Denies acute: sore throat, swelling, difficulty swallowing , pain with swa llowing, change in voice. NECK: Denies acute: neck pain, neck swelling, stiff neck. HEART: Denies acute : chest pain, palpitations, LUNGS: Denies acute: SOB, wheezing, cough, hemoptysis ABDOMEN: Denies acute: abdominal pain, Nausea, Vomiting, diarrhea, melena , hematemesis, hematochezia SKIN: Denies acute: rash, redness, lesions, itchiness. EXTREMITIES: Denies acute: calf pain, numbness, tingling, weakness, denies pain in extremity. Denies acute: Low back pain. Neuro: Denies acute: focal neurological deficit, motor or sensory focal neurological deficit, confusion, dizziness, change in mental status, loss of bowel or b ladder function, cauda equina like symptoms. : Denies acute: dysuria, hematuria, flank pain, increase in urinary frequency. PSYCH: Denies acute: hallucination, suicidal ideation, homicidal ideation. FEMALE: Denies acute: abnormal vaginal bleeding, foul odor, unusual discharge. PHYSICAL EXAM: General: ----no----acute distress, awake and alert. Patient is wearing hearing aids Head: normocephalic, atraumatic. No raccoon's eyes, no ch sign. Neck: supple, trachea is midline, no swelling. Throat: Normal phonation. Eyes:, no erythema, no purulent discharge, no proptosis, no icterus. Blind in one eye. Heart: regular rate, regular rhythm, no significant murmur appreciated. Lungs: no apparent respiratory distress, Able to speak in full sentences. No wheezing, no rhonchi, no crackles. No stridors Clear to auscultation bilaterally. Abdomen: non tender to palpation, non distended, soft, no guarding, no rebound, + bowel sounds. Neuro: Awake, Alert, oriented to name, self, situation, follows commands GCS=15. Speech is normal. Skin: no petechia, no purpura, no cyanosis, non-pale, not jaundice. Lower extremities: --no - Pitting edema no deformity, no focal swelling, no calf TTP. Makes eye contact. moves all four extremities. Face: no apparent facial droop. ED COURSE: DISCLAIMER: This medical document was created using an electronic medical record system with voice recognition software and computerized dictation system. Although this document has been carefully reviewed, there might still be some phonetic and typographical errors. Occasional wrong-word or "sound-alike" substitutions may have occurred due to the inherent limitations of voice recognition software. These areas are purely typographical due to imperfections of the software programs and do not reflect any compromise in the patient's medical care. Please read the chart carefully and recognize, using context, where these substitutions have occurred. Chief Complaint: Fever Time Seen by MD: 21:30 Primary Care Provider: GREGORIO Reagan Notes: Allergies Information Source: Patient, Relative Mode of Arrival: EMS Past Medical History PAST MEDICAL HISTORY: High Lipids, HTN Surgical History: Denies all surgeries INTERNET RETAILER History: No Pertinent INTERNET RETAILER History Family History Family History: Unknown Social History Smoker: Non-Smoker Alcohol: Denies ETOH Use Drugs: Denies Drug Use Lives In: Home Was a procedure done? Was a procedure done?: No Differential Diagnosis (SZ) Seizure: N/A General Weakness: Anemia, CVA, Dehydration, Dysrhythmia, Electrolyte imbalance, Encephalopathy, Guillain-[place], Hypoglycemia, Hypotension, Hypovolemia, Labyrinthitis, Meniere's disease, Myasthenia gravis, Myocardial infarction, Pulmonary embolus, Renal failure, Repiratory failure, TIA, VBI, Vertigo: central, Vertigo: peripheral, Vestibular neuronitis, Other (Includes but not limited to thyroid disease, encephalopathy, electrolyte abnormality, sepsis, infection, intracranial pathology, drug adverse effects, arrhythmia, kidney insufficiency, ACS, CVA, malignancy, anemia) X-Ray, Labs, Meds, VS Vital Signs Date Time Temp Pulse Resp B/P (MAP) Pulse Ox O2 Delivery O2 Flow Rate FiO2 05/26/25 23:01 97.7 97 18 148/67 (94) 95 97.7 05/26/25 20:48 106 05/26/25 20:29 97.9 110 20 157/76 96 97.9 Lab Test 05/26/25 22:15 05/26/25 21:21 05/26/25 21:05 05/26/25 00:00 Range/Units Troponin I High Sensitivity 19 9 </=34 ng/L Influenza Type A Antigen Negative Negative Influenza Type B Antigen Negative Negative SARS-CoV-2 Antigen (Rapid) Negative NEGATIVE White Blood Count 5.1 4.4-10.8 10^3/uL Red Blood Count 4.44 4.0-5.20 10^6/uL Hemoglobin 13.2 12.2-16.2 g/dL Hematocrit 40.5 36.0-46.0 % Mean Corpuscular Volume 91.2 80.0-100.0 fL Mean Corpuscular Hemoglobin 29.8 28.0-32.0 pg Mean Corpuscular Hemoglobin Concent 32.7 32.0-36.0 g/dL Red Cell Distribution Width 13.6 11.8-14.3 % Platelet Count 297 140-450 10^3/uL Mean Platelet Volume 7.7 6.9-10.8 fL Neutrophils (%) (Auto) 68.8 37.0-80.0 % Lymphocytes (%) (Auto) 24.4 10.0-50.0 % Monocytes (%) (Auto) 5.1 0.0-12.0 % Eosinophils (%) (Auto) 1.1 0.0-7.0 % Basophils (%) (Auto) 0.6 0.0-2.0 % Neutrophils # (Auto) 3.5 1.6-8.6 10 ^3/uL Lymphocytes # (Auto) 1.3 0.4-5.4 10 ^3/uL Monocytes # (Auto) 0.3 0-1.3 10 ^3/uL Eosinophils # (Auto) 0.1 0-0.8 10 ^3/uL Basophils # (Auto) 0 0-0.2 10 ^3/uL Nucleated Red Blood Cells 0.1 % Sodium Level 143 136-145 mmol/L Potassium Level 3.4 L 3.5-5.1 mmol/L Chloride Level 107 98-107 mmol/L Carbon Dioxide Level 24 20-31 mmol/L Anion Gap 12 5-15 Blood Urea Nitrogen 10 9-23 mg/dL Creatinine 0.79 0.550-1.02 mg/dL Glomerular Filtration Rate Calc 74 >90 mL/min BUN/Creatinine Ratio 12.7 10.0-20.0 Serum Glucose 197 H 74-106 mg/dL Lactic Acid Level 3.1 *H 0.4-2.0 mmol/L Calcium Level 9.1 8.7-10.4 mg/dL Total Bilirubin 0.5 0.2-1.0 mg/dL Aspartate Amino Transferase (AST) 36 13-40 U/L Alanine Aminotransferase (ALT) 27 7-40 U/L Alkaline Phosphatase 81 46-116 U/L Total Protein 9.7 H 5.7-8.2 g/dL Albumin 4.5 3.2-4.8 g/dL Urine Color Light-yellow Yellow Urine Clarity Clear Clear Urine pH 6.0 5.0-9.0 Urine Specific [place] 1.017 1.001-1.035 Urine Protein 1+ H Negative Urine Ketones Negative Negative Urine Blood Negative Negative /uL Urine Nitrite Negative Negative Urine Bilirubin Negative Negative Urine Urobilinogen Normal Negative mg/dL Urine Leukocyte Esterase 1+ Negative /uL Urine RBC 2 0 - 4 /hpf Urine Microscopic WBC 2 0-5 /HPF Urine Squamous Epithelial Cells Few <5 /hpf Urine Bacteria None seen None Seen /hpf Urine Mucus Few None Seen Urine Glucose Normal Normal mg/dL [address] [address] Ph: [phone] DIAGNOSTIC IMAGING Diagnostic Imaging Report : [id number] Signed PATIENT: TRAVIS VASQUEZ ACCT: [id number] UNIT: [id number] : 1940 LOC: OVERFLOW ROOM / BED: [address] [place] [address] / A AGE / SEX: 85 / F ADM STATUS: ADM IN SERVICE ORDERING PHYSICIAN: LEXI VÁZQUEZ PROCEDURE(s): HWOCT - HEAD WITHOUT CONTRAST REASON: tremors ORDER NUMBER(s): [id number], ACCESSION NUMBER(s): [id number] CT HEAD WITHOUT CONTRAST INDICATION: tremors COMPARISON: HEAD W WO CONTRAST on DOS: 02/06/21 TECHNIQUE: CT of the head without intravenous contrast. RADIATION DOSE: CTDIvol: mGy, DLP: mGy*cm FINDINGS: No evidence of intracranial hemorrhage, infarct, extra-axial collection, mass effect, midline shift, herniation or hydrocephalus. Mild ventricular and sulcal enlargement related to mild cerebral volume loss. Visualized paranasal sinuses and mastoid air cells are clear. Soft tissues and osseous structures are unremarkable. Left phthisis bulbi. On the phone changed by recent mental disease or defect IMPRESSION: No intracranial abnormality identified. ATED BY: SAM GAUTHIER MD DICTATED DATE/TIME: 05/27/25141 SIGNED BY: SAM GAUTHIER MD SIGNED DATE/TIME: 05/27/25141 CC: [place] [id number] Ph: [phone] DIAGNOSTIC IMAGING Diagnostic Imaging Report : [id number] Signed PATIENT: TRAVIS VASQUEZ ACCT: [id number] UNIT: [id number] : 1940 LOC: ER ROOM / BED: / AGE / SEX: 85 / F ADM STATUS: REG ER SERVICE 51 ORDERING PHYSICIAN: MARIE SEPULVEDA DO PROCEDURE(s): CXRP - CHEST PORTABLE REASON: fever ORDER NUMBER(s): [id number], ACCESSION NUMBER(s): [id number] CHEST RADIOGRAPH Indication: fever Technique: Single frontal view of the chest was obtained COMPARISON: None FINDINGS: Cardiac silhouette is enlarged. Mild diffuse prominence of the pulmonary vasculature. Suspect mild bronchial wall thickening. No dense focal airspace disease. No significant pleural effusions or pneumothorax. Bones and soft tissues demonstrate no significant abnormality. Prominent gastric bubble noted. IMPRESSION: Cardiomegaly with mild pulmonary venous congestion. Suspect mild interstitial thickening /bronchial wall thickening which may suggest a bronchiolitis or viral pneumonia. No evidence for a lobar pneumonia. ATED BY: PHIL PEREZ MD DICTATED DATE/TIME: 05/26/252141 SIGNED BY: PHIL PEREZ MD SIGNED DATE/TIME: 05/26/252141 CC: Time of 1ST Reevaluation: 00:00 Reevaluation 1ST: Unchanged Patient Education/Counseling: Diagnosis, Treatment Family Education/Counseling: Diagnosis, Treatment Comments MDM: patient presented with the above HPI.--tremors/generalized weakness----workup was initiated. patient was found with the above mentioned diagnosis. the following medications were ordered: please refer to order lists of meds and tests obtained by myself Dr. Sepulveda. Patient ED course and VS have been stabilized. Patient has been reassessed in the ED and remained in a stable condition. Patient/family voices understanding and is agreeable with plan. Patient has been observed in the ED adequate length of time to insure improvement/stability. Escalation of care considered: Consideration of escalation to observation or admission Patient was ADMITTED to the medicine team for further evaluation and treatment of their presentation. Patient was given broad-spectrum antibiotics given her overall presentation and possible sepsis. Patient was given fluids. All the reports of any imaging studies that were ordered by myself were reviewed by myself. Departure 1 Departure Time of Disposition: 23:10 Impression: Primary Impression: Episode of shaking Additional Impressions: Generalized weakness Unable to ambulate Elevated lactic acid level Disposition: ADMITTED INPATIENT Condition: Guarded Discharged With: Self Critical Care Note Critical Care Time?: No Stability Stability form required: No I personally scribed for MARIE SEPULVEDA DO ([email or web address]) on 05/26/25 at 22:17. Electronically submitted by Wolf Langston [email or web address]). MARIE SEPULVEDA DO May 26, 2025 22:17
[2025-05-26 22:36] LABS: Urine Protein, UAD 1+ (Negative)
[2025-05-26 22:38] LABS: COVID19 ANTIGEN SOFIA FIA NEGATIVE (NEGATIVE)
--- NOTE | 2025-05-26 23:27 | DVHHPRES ---
History of Present Illness Resident Creating Document: LEXI VÁZQUEZ RESIDENT History of Present Illness Patient is a 85-year-old female with past medical history of HTN, HLD, palpitations or dizziness, vestibulitis and osteoporosis, presented to [facility] ED with complaint of shaking and tremors. At approximately 8:30 PM today, when she tried to go to the bathroom at home and suddenly screamed and began experiencing tremors throughout her whole body. There was no reported fall, trauma, or injury. The patient had been reportedly well earlier in the day, with no prior history of similar episodes. She denies chest pain, shortness of breath, or other acute symptoms. On evaluation in the ED, patient is afebrile, tachycardic and BP is 148/67 mmHg. Initial labs show potassium 3.3, serum glucose 197, lactic acid 3.1 and troponin 9. Chest X-ray shows cardiomegaly with mild pulmonary venous congestion. The patient was started on IV antibiotics and IV fluids. Patient is admitted for further evaluation and management. Past Medical History HTN, HLD, palpitations or dizziness, vestibulitis and osteoporosis Past Surgical History: None Family History: None Smoke: No ALCOHOL: none Drugs: None Lives: with Family Review of Systems Review of Systems Eyes: No Pain, No Vision change, No Conjunctivae inflammation, No Eyelid inflammation, No Other, No Redness ENT: No Ear pain, No Ear discharge, No Nose pain, No Nose discharge, No Nose congestion, No Mouth pain, No Mouth swelling, No Throat pain, No Throat swelling, No Other Cardiovascular: No Chest Pain, Palpitations, No Orthopnea, No Paroxysmal No Dyspnea, No Edema, No Lt Headedness, No Other Respiratory: No Cough, No Dry, No Shortness of breath, No SOB with exertion, No Wheezing, No Hemoptysis, No Pleuritic Pain, No Sputum, No Other Gastrointestinal: No Nausea, No Vomiting, No Abdominal Pain, No Diarrhea, No Constipation, No Melena, No Hematochezia, No Other Genitourinary: No Dysuria, No Frequency, No Incontinence, No Hematuria, No Retention, No Other Musculoskeletal: No other, No neck pain, No shoulder pain, No arm pain, No back pain, No hand pain, No leg pain, No foot pain. Tremors. Skin: No Rash, No Lesions, No Jaundice, No Bruising, No Other Allergies: Coded Allergies: NO KNOWN ALLERGIES (Unverified , 10/09/17) Exam Vital Signs Vital Signs Date Time Temp Pulse Resp B/P (MAP) Pulse Ox O2 Delivery O2 Flow Rate FiO2 05/26/25 23:01 97.7 97 18 148/67 (94) 95 97.7 Exam General Appearance: Cachectic. Generalized weakness. NAD Head Exam: Normal inspection. Left eye blindness Neck Exam: Normal inspection. Non-tender. Normal alignment Pulmonary/Respiratory: Chest non-tender. Clear bilateral breath sounds, no crackles, no wheezing. Cardiovascular/Chest: Regular rate and rhythm. No murmurs. No JVD. Peripheral Pulses: 2+ Radial (R). 2+ Radial (L). 2+ Pedal (R). 2+ Pedal (L) Abdominal Exam: Normal bowel sounds. Soft. normal abdomen, no visible veins, Nontender. No hepatospenomegaly. No masses Ankle Exam: Negative ankle edema Lower extremities: Negative lower extremity edema Neuro/Mental Status: A&O x4. Coherent. Positive Romberg sign Thoughts/Psych: Normal thought pattern. Appropriate mood and affect. Good judgement and insight Skin Exam: Normal inspection. Normal color. Warm. Dry Labs/Xrays Labs Test 05/26/25 22:15 05/26/25 21:21 05/26/25 21:05 05/26/25 00:00 Range/Units Troponin I High Sensitivity 19 </=34 ng/L Influenza Type A Antigen Negative Negative Influenza Type B Antigen Negative Negative SARS-CoV-2 Antigen (Rapid) Negative NEGATIVE White Blood Count 5.1 4.4-10.8 10^3/uL Red Blood Count 4.44 4.0-5.20 10^6/uL Hemoglobin 13.2 12.2-16.2 g/dL Hematocrit 40.5 36.0-46.0 % Mean Corpuscular Volume 91.2 80.0-100.0 fL Mean Corpuscular Hemoglobin 29.8 28.0-32.0 pg Mean Corpuscular Hemoglobin Concent 32.7 32.0-36.0 g/dL Red Cell Distribution Width 13.6 11.8-14.3 % Platelet Count 297 140-450 10^3/uL Mean Platelet Volume 7.7 6.9-10.8 fL Neutrophils (%) (Auto) 68.8 37.0-80.0 % Lymphocytes (%) (Auto) 24.4 10.0-50.0 % Monocytes (%) (Auto) 5.1 0.0-12.0 % Eosinophils (%) (Auto) 1.1 0.0-7.0 % Basophils (%) (Auto) 0.6 0.0-2.0 % Neutrophils # (Auto) 3.5 1.6-8.6 10 ^3/uL Lymphocytes # (Auto) 1.3 0.4-5.4 10 ^3/uL Monocytes # (Auto) 0.3 0-1.3 10 ^3/uL Eosinophils # (Auto) 0.1 0-0.8 10 ^3/uL Basophils # (Auto) 0 0-0.2 10 ^3/uL Nucleated Red Blood Cells 0.1 % Sodium Level 143 136-145 mmol/L Potassium Level 3.4 L 3.5-5.1 mmol/L Chloride Level 107 98-107 mmol/L Carbon Dioxide Level 24 20-31 mmol/L Anion Gap 12 5-15 Blood Urea Nitrogen 10 9-23 mg/dL Creatinine 0.79 0.550-1.02 mg/dL Glomerular Filtration Rate Calc 74 >90 mL/min BUN/Creatinine Ratio 12.7 10.0-20.0 Serum Glucose 197 H 74-106 mg/dL Lactic Acid Level 3.1 *H 0.4-2.0 mmol/L Calcium Level 9.1 8.7-10.4 mg/dL Total Bilirubin 0.5 0.2-1.0 mg/dL Aspartate Amino Transferase (AST) 36 13-40 U/L Alanine Aminotransferase (ALT) 27 7-40 U/L Alkaline Phosphatase 81 46-116 U/L Total Protein 9.7 H 5.7-8.2 g/dL Albumin 4.5 3.2-4.8 g/dL Urine Color Light-yellow Yellow Urine Clarity Clear Clear Urine pH 6.0 5.0-9.0 Urine Specific [place] 1.017 1.001-1.035 Urine Protein 1+ H Negative Urine Ketones Negative Negative Urine Blood Negative Negative /uL Urine Nitrite Negative Negative Urine Bilirubin Negative Negative Urine Urobilinogen Normal Negative mg/dL Urine Leukocyte Esterase 1+ Negative /uL Urine RBC 2 0 - 4 /hpf Urine Microscopic WBC 2 0-5 /HPF Urine Squamous Epithelial Cells Few <5 /hpf Urine Bacteria None seen None Seen /hpf Urine Mucus Few None Seen Urine Glucose Normal Normal mg/dL SEPSIS Sepsis Screen Date sepsis recognized/suspect: May 26, 2025 Time Sepsis recognized/suspect: 2029 Recent Procedure: No On Antibiotic Therapy: No Respiratory Rate >20: No Heart Rate >90: Yes Temp<36 C (96.8 F) or >38.3 C: No SBP <90 or MAP <65 mmHG: No New Acute Mental Status Change: No Is the patient on CPAP, BIPAP,: No Physician Orders Crew Leader Gluing (05/26/25 ) Chest Portable (05/26/25 20:52) Electrocardigram (05/26/25 20:52) Blood Culture (05/26/25 20:52) Troponin-I Hs (05/26/25 23:52) Ceftriaxone 1gm/50ml (Rocephin) (05/26/25 23:15) Sodium Chloride 0.9% (05/26/25 23:15) Vital Signs Date Time Temp Pulse Resp B/P (MAP) Pulse Ox O2 Delivery O2 Flow Rate FiO2 05/26/25 23:01 97.7 97 18 148/67 (94) 95 97.7 05/26/25 20:48 106 05/26/25 20:29 97.9 110 20 157/76 96 97.9 Laboratory Tests Test 05/26/25 21:05 Lactic Acid Level 3.1 mmol/L (0.4-2.0) *H White Blood Count 5.1 10^3/uL (4.4-10.8) Assessment/Plan Assessment/Plan Sepsis secondary to atypical pneumonia Chest X-ray: Cardiomegaly with mild pulmonary venous congestion. Suspect mild interstitial thickening/bronchial wall thickening which may suggest a bronchiolitis or viral pneumonia. No evidence for a lobar pneumonia. CT head: No intracranial abnormality identified. Echocardiogram pending Blood culture Urine culture BNP Lactic Acid 3.1 > 1.6, down trending TSH B12 Aspirin 81 MG PO daily Atorvastatin 10 MG PO hs Ceftriaxone IV daily Azithromycin 500 MG/250 ML IV once Levalbuterol 1.25 MG NEB q6h Ipratropium 0.5 MG NEB q6h Hypokalemia potassium ER tablet 40 MEQ PO once Hypertension monitor BP Diet: Cardiac Goals of care: Full code, discussed for >30 minutes on 05/26/25 Plan discussed with patient Plan discussed with Dr. Manuel Plan discussed with: Patient, Daughter Date of Service: May 26, 2025 Billing Provider: SAVAGE MANUEL MD Common Visit Codes: 98586-EVQYFFP INP/OBS CARE (HIGH) Secondary Visit Codes: 01771-[id number] CARE PLAN 30 MINUTES LEXI VÁZQUEZ RESIDENT May 26, 2025 23:27
[2025-05-27] VITALS (11 sets, daily range): BP systolic 131–180; BP diastolic 64–99; PULSE 63–99; RESP 16–18; TEMP 97.6–99; O2SAT 95–98
[2025-05-27] MEDS: ATORVASTATIN 20 MG TAB PO ONE (00:30)
[2025-05-27] MEDS ORDERED: IPRATROPIUM BROM 0.5 MG/2.5ML INH SOL NEB PRN (00:30)
[2025-05-27] MEDS: SODIUM CHLORIDE 0.9% 1,000 ML IV SCH (00:30)
--- NOTE | 2025-05-27 01:43 | DVH ---
CT HEAD WITHOUT CONTRAST INDICATION: tremors COMPARISON: HEAD W WO CONTRAST on DOS: 02/06/21 TECHNIQUE: CT of the head without intravenous contrast. RADIATION DOSE: CTDIvol: mGy, DLP: mGy*cm FINDINGS: No evidence of intracranial hemorrhage, infarct, extra-axial collection, mass effect, midline shift, herniation or hydrocephalus. Mild ventricular and sulcal enlargement related to mild cerebral volume loss. Visualized paranasal sinuses and mastoid air cells are clear. Soft tissues and osseous structures are unremarkable. Left phthisis bulbi. On the phone changed by recent mental disease or defect IMPRESSION: No intracranial abnormality identified.
[2025-05-27] MEDS: POTASSIUM CHL 20 Meq TABLET PO ONE (03:18)
[2025-05-27] MEDS: AZITHROMYCIN 500MG/ 250ML 250 ML IV ONE (03:32)
[2025-05-27 05:33] LABS: Hematocrit 38.6 % (36.0-46.0); Hemoglobin 12.8 g/dL (12.2-16.2); Mean Corpuscular Hemoglobin 30.3 pg (28.0-32.0); Mean Corpuscular Volume 91.4 fL (80.0-100.0); Nucleated Red Blood Cells % 0.1 %
[2025-05-27] MEDS ORDERED: LEVALBUTEROL HCL 1.25 MG/3 ML NEB NEB SCH (06:00)
[2025-05-27] MEDS: SODIUM CHLOR 0.9% PF (SALINE LOCK) 10ML VIAL/SYR IV SCH (06:00)
[2025-05-27 06:04] LABS: Alanine Aminotransferase 27 U/L (7-40); Albumin 4.2 g/dL (3.2-4.8); Alkaline Phosphatase 68 U/L (46-116); Anion Gap 7 (5-15); BUN/Creatinine Ratio 25.0 (10.0-20.0); Bilirubin, Total 0.4 mg/dL (0.2-1.0); Blood Urea Nitrogen 12 mg/dL (9-23); Calcium 9.1 mg/dL (8.7-10.4); Carbon Dioxide 27 mmol/L (20-31); Chloride 106 mmol/L (98-107); Glucose 93 mg/dL (74-106); Potassium 4.3 mmol/L (3.5-5.1); Sodium 140 mmol/L (136-145)
[2025-05-27 06:10] LABS: Total Protein 9.0 g/dL (5.7-8.2)
--- NOTE | 2025-05-27 08:54 | DVHPN2 ---
Progress Note - Dictate Date Seen: May 27, 2025 Medical Necessity Reason Pt with a Central, PICC or Fol: No Subjective History of Present Illness Assessment: Shelly Stauffer is an 85-year-old female with a past medical history of hyperlipidemia and left eye blindness who was admitted on May 26 for tremors. She presented with dehydration and was found to have upper viral pneumonia with hypertensive urgency. The patient is currently weak and deconditioned. Medical History - Hyperlipidemia - Left eye blindness Social History - Living Situation: Has a daughter named Reena Dudley who is involved in care discussions Review of Systems General: Positive for weakness. Neurological: Positive for tremors. vital signs Vital Sign Date Time Temp Pulse Resp B/P (MAP) Pulse Ox O2 Delivery O2 Flow Rate FiO2 05/27/25 08:34 98.6 80 16 180/99 (126) 97 98.6 05/27/25 03:38 Room Air* 0 21 Total Intake and Output 05/26/25 05/26/25 05/27/25 15:00 23:00 07:00 Intake Total 0 ml Balance 0 ml medications Current Medications Medications Dose Ordered Sig/Carlos Route Start Time Stop Time Status Last Admin Dose Admin Sodium Chloride 10 ml Q8HR IV 05/27/25 06:00 05/27/25 06:00 10 ML Sodium Chloride 1,000 ml @ 100 mls/hr Q10H IV 05/27/25 00:30 Levalbuterol HCl 1.25 mg Q6HPRN NEB 05/27/25 06:00 Ipratropium [place] 0.5 mg Q6HPRN PRN NEB 05/27/25 00:30 Azithromycin 250 ml @ 125 mls/hr DAILY IV 05/28/25 10:00 UNV Ceftriaxone Sodium 50 ml @ 100 mls/hr DAILY@09 IV 05/28/25 09:00 Aspirin 81 mg DAILY PO 05/27/25 10:00 Atorvastatin Calcium 10 mg HS PO 05/27/25 22:00 laboratory and microbiology Laboratory Tests 05/27/25 05:07 Test 05/27/25 05:07 Range/Units Serum Glucose 93 74-106 mg/dL Problem List Upper viral pneumonia Hypertensive urgency Hyperlipidemia Blindness left eye Dehydration Tremors Assessment/Plan Shelly Stauffer is an 85-year-old female admitted on May 26 for tremors, found to have upper viral pneumonia with hypertensive urgency, with past medical history of hyperlipidemia and left eye blindness. Upper viral pneumonia Assessment: Patient presented with tremors and was found to have upper viral pneumonia. Imaging showed possible infection with viral nature. Patient was afebrile with normal WBC count, and sepsis was ruled out. Heart rate remained within normal limits. Plan: - Continue azithromycin - Continue medneb treatments Hypertensive urgency Assessment: Patient presented with hypertensive urgency requiring medication adjustments. Plan: - Blood pressure medications were adjusted Dehydration Assessment: Patient presented with dehydration and received IV fluid resuscitation. Plan: - Gentle IV hydration - Stop IV fluids when patient is able to increase oral intake Weakness and deconditioning Assessment: Patient is weak and deconditioned, complicated by left eye blindness affecting mobility. Plan: - Assist patient up out of bed due to blindness Dietary Evaluation Review Recommendations by RD: Increase Calorie Intake Food and Nutrition Intake (Sev: <50% est energy req 5days Muscle Mass (Severe): Mod to Severe Depletion Protein Calorie Malnutrition: Severe Plan discussed with: Patient, Daughter Total Time (mins): 45 MANDO ROLLINS NP May 27, 2025 08:54
[2025-05-27] MEDS: CHLORTHALIDONE 25 MG TAB PO SCH (09:54)
[2025-05-27] MEDS: ASPirin-EC 81 mg tab PO SCH (09:57)
[2025-05-27] MEDS: LABETALOL HCL 20 MG/4 ML VL IV PRN (12:49)
[2025-05-27] MEDS: BRIMONIDINE 0.2% OPTH Soln 5ml RIGHTEYE SCH (14:26)
[2025-05-27] MEDS: ATORVASTATIN 20 MG TAB PO SCH (21:02)
[2025-05-27] MEDS ORDERED: ATORVASTATIN 20 MG TAB PO SCH (22:00)
--- NOTE | 2025-05-27 22:22 | DVHSR ---
APPROVED REPORT EXAM: LIMITED Two-dimensional and M-mode echocardiogram with Doppler and color Doppler. Blood Pressure: 180/99 mmHg INDICATION Chest Pain RISK FACTORS Height: 5' 7", Weight: 80 DIMENSIONS LVDd3.1 (3.8-5.7cm)LA (2D)4.0 (1.9-4.0cm)Aortic Root3.0 (2.0-3.7cm) LVDs1.7 (2.5-4.0cm)LA (MM) (1.9-4.0cm)Aortic Cusp Exc1.6 (1.5-2.0cm) EF (%) 78.0 (55-70%)Rt. Atrium3.0 (1.9-4.0cm)Asc. Aorta cm IVSd1.4 (0.7-1.1cm)RV (D) (1.8-2.4cm) PWd1.4 (0.7-1.1cm) Mitral Valve MitralMitral Stenosis E wave0.70m/sMV Mean GR.mmHg A wave1.00m/sMV Peak GR.mmHg E/A ratio0.72D MVAcm2 Aortic Valve Aortic ValveAortic Stenosis V11.30m/Juana Mean GR.6mmHg V21.50m/Juana Peak GR.10mmHg LVOT Diameter2.0 (1.8-2.4cm)Doppler AVA2.72cm2 Tricuspid Valve TR Velocity2.60m/s [id number] Conclusion MODERATE DEGREE LVH AND MODERATE DEGREE LV DIASTOLIC DYSFUNCTION LV EF IS 75% NORMAL VALVES NO EFFUSION NORMAL RV FUNCTION
[2025-05-28] VITALS (12 sets, daily range): BP systolic 125–162; BP diastolic 63–80; PULSE 58–77; RESP 15–18; TEMP 97.5–99.1; O2SAT 96–99
[2025-05-28] MEDS: AZITHROMYCIN 500MG/ 250ML 250 ML IV SCH (09:28)
--- NOTE | 2025-05-28 11:57 | DVHPN2 ---
Progress Note - Dictate Date Seen: May 28, 2025 Medical Necessity Reason Pt with a Central, PICC or Fol: No Subjective History of Present Illness Assessment: Patient is an 85-year-old female admitted for tremors, most likely related to upper viral pneumonia. Patient is doing better overall since admission. Patient has been receiving breathing treatments, though not consistently, which have now been scheduled every 6 hours. Patient was also admitted with hypertensive urgency and was found to have some mild dehydration, for which she received IV fluids that have since been discontinued. Patient has a history of left-eye blindness and is being assisted with mobility from bed to chair and bathroom as needed. Plan: - Continue breathing treatments every 6 hours Medical History - Hypertension - Left-eye blindness Medications and Supplements - Azithromycin - Amlodipine 50 mg by mouth twice daily Social History - Living Situation: Has a daughter who serves as contact for medical updates Review of Systems HEENT: Negative for throat pain. Respiratory: Negative for cough. vital signs Vital Sign Date Time Temp Pulse Resp B/P (MAP) Pulse Ox O2 Delivery O2 Flow Rate FiO2 05/28/25 09:28 160/82 05/28/25 09:00 98.6 60 15 97 98.6 05/28/25 08:00 Room Air* 0 21 Total Intake and Output 05/27/25 05/27/25 05/28/25 14:59 22:59 06:59 Intake Total 600 ml 460 ml Balance 600 ml 460 ml medications Current Medications Medications Dose Ordered Sig/Carlos Route Start Time Stop Time Status Last Admin Dose Admin Sodium Chloride 10 ml Q8HR IV 05/27/25 06:00 05/28/25 06:03 10 ML Levalbuterol HCl 1.25 mg Q6HPRN NEB 05/27/25 06:00 Ipratropium [place] 0.5 mg Q6HPRN PRN NEB 05/27/25 00:30 Azithromycin 250 ml @ 125 mls/hr DAILY IV 05/28/25 10:00 05/28/25 09:28 125 MLS/HR Ceftriaxone Sodium 50 ml @ 100 mls/hr DAILY@09 IV 05/28/25 09:00 05/28/25 09:28 100 MLS/HR Aspirin 81 mg DAILY PO 05/27/25 10:00 Cancel Atorvastatin Calcium 10 mg HS PO 05/27/25 22:00 Cancel Aspirin 81 mg DAILY PO 05/27/25 10:00 05/28/25 09:28 81 MG Brimonidine Tartrate 1 drop TID DOROTAE 05/27/25 14:00 05/28/25 06:02 1 DROP Chlorthalidone 25 mg DAILY PO 05/27/25 10:00 05/28/25 09:27 25 MG Atorvastatin Calcium 10 mg HS PO 05/27/25 22:00 05/27/25 21:02 10 MG Nifedipine 60 mg DAILY PO 05/27/25 10:00 05/28/25 09:28 60 MG Labetalol HCl 20 mg Q2HPRN PRN IV 05/27/25 11:30 05/27/25 12:49 20 MG laboratory and microbiology Laboratory Tests 05/27/25 05:07 Test 05/27/25 05:07 Range/Units Serum Glucose 93 74-106 mg/dL Problem List Upper viral pneumonia Hypertensive urgency Hyperlipidemia Blindness left eye Dehydration Assessment/Plan Shelly Stauffer is an 85-year-old female with a history of upper viral pneumonia, hypertensive urgency, deconditioning, and mild dehydration presenting for tremors most likely related to upper viral pneumonia. Upper viral pneumonia Assessment: Patient presents with tremors most likely related to upper viral pneumonia. Imaging shows infection of a most likely viral nature. Patient is improving and currently asymptomatic with no cough or throat pain. She was started on azithromycin for treatment. Plan: - Continue breathing treatments scheduled every 6 hours - Continue azithromycin - Patient to use incentive spirometer - Repeat chest x-ray in AM Hypertensive urgency Assessment: Patient was admitted with hypertensive urgency requiring medication adjustment. Plan: - Amlodipine 50 mg BID added to regimen Deconditioning Assessment: Patient demonstrates functional limitations requiring assistance with mobility and activities of daily living. Plan: - Physical therapy evaluation for deconditioned state - Assist patient up out of bed to chair and bathroom as needed Mild dehydration Assessment: Patient was found to have mild dehydration which has been addressed. Plan: - IV fluids have been discontinued Plan discussed with: Patient Total Time (mins): 45 MANDO ROLLINS DRY CELL SEALER May 28, 2025 11:57
[2025-05-28 12:26] LABS: Hematocrit 35.0 % (36.0-46.0); Hemoglobin 11.4 g/dL (12.2-16.2); Mean Corpuscular Hemoglobin 29.9 pg (28.0-32.0); Mean Corpuscular Volume 91.7 fL (80.0-100.0); Nucleated Red Blood Cells % 0.2 %
[2025-05-28 12:31] LABS: Chloride 100 mmol/L (98-107); Potassium 3.5 mmol/L (3.5-5.1)
[2025-05-28 12:32] LABS: Anion Gap 10 (5-15); Carbon Dioxide 26 mmol/L (20-31)
[2025-05-28 12:33] LABS: Calcium 8.8 mg/dL (8.7-10.4)
[2025-05-28 12:35] LABS: Sodium 136 mmol/L (136-145)
--- NOTE | 2025-05-28 12:37 | DVH ---
CHEST RADIOGRAPH Indication: f/u Technique: Single frontal view of the chest was obtained Comparison: XY CHEST PORTABLE on DOS: 05/26/25 FINDINGS: Lines and Tubes: None Lungs: Right lower lung field airspace disease or atelectasis appears to be residual from 05/26/2025. Pleura: No effusion. No pneumothorax. Cardiomediastinal contours: No significant change in cardiac size. Bones: No acute osseous abnormality. IMPRESSION: 1. Slightly improved pulmonary venous congestion.
[2025-05-28 12:38] LABS: BUN/Creatinine Ratio 13.1 (10.0-20.0)
[2025-05-28 12:39] LABS: Blood Urea Nitrogen 8 mg/dL (9-23); Glucose 113 mg/dL (74-106)
[2025-05-28] MEDS: LEVALBUTEROL HCL 1.25 MG/3 ML NEB NEB SCH (14:57)
[2025-05-28] MEDS: LOSARTAN POTASSIUM 25 MG TAB PO ONE (15:39)
[2025-05-28] MEDS: LOSARTAN POTASSIUM 25 MG TAB PO SCH (22:56)
[2025-05-29] VITALS (9 sets, daily range): BP systolic 132–140; BP diastolic 71–81; PULSE 58–75; RESP 16–20; TEMP 97.9–98.3; O2SAT 96–100
[2025-05-29] MEDS ORDERED: LOS25T PO (07:46)
--- NOTE | 2025-05-29 07:50 | DVHDS2 ---
Discharge Summary Date of Admission May 26, 2025 at 23:33 Date of Discharge: May 29, 2025 Admitting Diagnosis tremors upper viral syndrome Labs/Diagnostic Data: Laboratory Results Test 05/28/25 12:07 05/27/25 05:07 05/26/25 23:56 05/26/25 21:21 White Blood Count 3.1 10^3/uL (4.4-10.8) Red Blood Count 3.82 10^6/uL (4.0-5.20) Hemoglobin 11.4 g/dL (12.2-16.2) Hematocrit 35.0 % (36.0-46.0) Mean Corpuscular Volume 91.7 fL (80.0-100.0) Mean Corpuscular Hemoglobin 29.9 pg (28.0-32.0) Mean Corpuscular Hemoglobin Concent 32.6 g/dL (32.0-36.0) Red Cell Distribution Width 13.5 % (11.8-14.3) Platelet Count 247 10^3/uL (140-450) Mean Platelet Volume 8.0 fL (6.9-10.8) Neutrophils (%) (Auto) 54.7 % (37.0-80.0) Lymphocytes (%) (Auto) 29.2 % (10.0-50.0) Monocytes (%) (Auto) 12.8 % (0.0-12.0) Eosinophils (%) (Auto) 2.3 % (0.0-7.0) Basophils (%) (Auto) 1.0 % (0.0-2.0) Neutrophils # (Auto) 1.7 10 ^3/uL (1.6-8.6) Lymphocytes # (Auto) 0.9 10 ^3/uL (0.4-5.4) Monocytes # (Auto) 0.4 10 ^3/uL (0-1.3) Eosinophils # (Auto) 0.1 10 ^3/uL (0-0.8) Basophils # (Auto) 0 10 ^3/uL (0-0.2) Nucleated Red Blood Cells 0.2 % Sodium Level 136 mmol/L (136-145) Potassium Level 3.5 mmol/L (3.5-5.1) Chloride Level 100 mmol/L (98-107) Carbon Dioxide Level 26 mmol/L (20-31) Anion Gap 10 (5-15) Blood Urea Nitrogen 8 mg/dL (9-23) Creatinine 0.61 mg/dL (0.550-1.02) Glomerular Filtration Rate Calc 89 mL/min (>90) BUN/Creatinine Ratio 13.1 (10.0-20.0) Serum Glucose 113 mg/dL (74-106) Calcium Level 8.8 mg/dL (8.7-10.4) Hemoglobin A1c 4.6 % A1C (<5.7) Lactic Acid Level 1.0 mmol/L (0.4-2.0) Total Bilirubin 0.4 mg/dL (0.2-1.0) Aspartate Amino Transferase (AST) 25 U/L (13-40) Alanine Aminotransferase (ALT) 27 U/L (7-40) Alkaline Phosphatase 68 U/L (46-116) B-Type Natriuretic Peptide 72.75 pg/mL (0-100) Total Protein 9.0 g/dL (5.7-8.2) Albumin 4.2 g/dL (3.2-4.8) Thyroid Stimulating Hormone (TSH) 1.55 uIU/mL (0.55-4.78) Troponin I High Sensitivity 30 ng/L (</=34) Influenza Type A Antigen Negative (Negative) Influenza Type B Antigen Negative (Negative) SARS-CoV-2 Antigen (Rapid) Negative (NEGATIVE) Test 05/26/25 00:00 Urine Color Light-yellow (Yellow) Urine Clarity Clear (Clear) Urine pH 6.0 (5.0-9.0) Urine Specific [place] 1.017 (1.001-1.035) Urine Protein 1+ (Negative) Urine Ketones Negative (Negative) Urine Blood Negative /uL (Negative) Urine Nitrite Negative (Negative) Urine Bilirubin Negative (Negative) Urine Urobilinogen Normal mg/dL (Negative) Urine Leukocyte Esterase 1+ /uL (Negative) Urine RBC 2 /hpf (0 - 4) Urine Microscopic WBC 2 /HPF (0-5) Urine Squamous Epithelial Cells Few /hpf (<5) Urine Bacteria None seen /hpf (None Seen) Urine Mucus Few (None Seen) Urine Glucose Normal mg/dL (Normal) Other Laboratory Tests 05/28/25 12:07 Brief Hx & Hospital Course: Shelly Stauffer is 85-year-old female that was admitted for tremors and upper viral syndrome. Patient was started on breathing treatments and gentle IV hydration. Patient was seen by physical therapy. Patient was initially on supplemental O2 however she was then weaned off. Patient's blood pressure was uncontrolled and blood pressure medication adjustments was made. 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 Case was discussed and agreed upon with her daughter. I also spoke with [facility] physicians and home health and physical therapy was arranged for discharge. Patient was weaned off oxygen and she was, working well with physical therapy. Patient was sent home on antibiotics and she will follow up with her physician in one week. Condition at Discharge: Good Final Diagnosis/Problems List Upper viral syndrome Tremors-improved Uncontrolled blood pressure- Losartan added, Chlorthalidone dc'd due to worsening electrolyte imbalance which could cause tremors Discharge Disposition: Home SNF Discharge Physician in charge at time of: Rudi Ambrose Will this Physician continue t: Yes Discharge Instruct/Medications Diet: Cardiac 2g Na,low cholest Activity: No Restrictions, As Tolerated Follow Up/Referral: [facility] 1 week Scheduled Aspirin (Aspir-Low Ec), 1 TAB PO DAILY, (Reported) Atorvastatin Calcium (Atorvastatin Calcium), 1 TAB PO DAILY, (Reported) Brimonidine Tartrate (Brimonidine Tartrate), 1 DROP RIGHTEYE TID, (Reported) Dorzolamide Hcl-Timolol Maleat (Cosopt Pf), 1 DROP RIGHTEYE BID, (Reported) Losartan Potassium (Losartan Potassium), 25 MG PO BID Nifedipine (Nifedipine Er), 1 TAB PO DAILY, (Reported) Discontinued Medications Chlorthalidone (Chlorthalidone), 25 MG PO, (Reported) 45 Discharge Statement: "Patient was advised to return to the ER or call 911 if any headaches, dizziness, shortness of breath, chest pain, abdominal pain, bleeding, fevers, or worsening of medical condition. Patient was counseled about treatment plan, medications, possible side effects, patientverbalized understanding. All questions were answered to the best of my ability. This discharge took greater then 30 minutes in planning, reviewing documentation, counseling the patient, and discussing with other team members." ASSESSMENT ASSESSMENT Assessment Upper viral syndrome Tremors-improved Uncontrolled blood pressure- Losartan added, Chlorthalidone dc'd due to worsening electrolyte imbalance which could cause tremors MANDO ROLLINS IT APPLICATIONS MANAGER May 29, 2025 07:50
--- NOTE | 2025-05-31 08:50 | ECG ---
[facility] Test Date: 2025-05-26 Test Time: 20:48:54 Pat Name: SAL VASQUEZ Department: [facility] ED Patient ID: [facility]-[id number] Room: [facility]6T A Gender: F Dough Panner: LIYA : 1940 Requested By: MARIE SEPULVEDA Order Number: [id number] Reading MD: Srinivas Rogers Measurements Intervals [place] Rate: 106 P: 56 AK: 169 QRS: 261 QRSD: 106 T: 61 QT: 362 QTc: 481 Interpretive Statements Sinus tachycardia LAD, consider left anterior fascicular block Right ventricular hypertrophy Electronically Signed On 06-05-2025 10:03:33 PST by Srinivas Rogers Please click the below link to view image of tracing.
== END 2025-05-29 12:50 | disposition home or self-care (01) | DRG 871 ==
LOC: EDBD 20:28 → ER 20:28 → OVERFLOW 23:33 → TELE-WESTW 05-27 03:37
PROVIDERS: ADMIT Nurse Practitioner; ATTEND Nurse Practitioner
DX: A41.9 Sepsis, unspecified organism (principal); J12.9 Viral pneumonia, unspecified; N17.0 Acute kidney failure with tubular necrosis; E87.20 Acidosis, unspecified; I16.0 Hypertensive urgency; E86.0 Dehydration; I10 Essential (primary) hypertension; E87.6 Hypokalemia; Z20.822 Contact with and (suspected) exposure to COVID-19; E78.5 Hyperlipidemia, unspecified; H54.62 Unqualified visual loss, left eye, normal vision right eye; M81.0 Age-related osteoporosis without current pathological fracture
CPT/HCPCS: 36415; 70450; 71045; 80048; 80053; 81001; 82607; 83036; 83605; 83880; 84443; 84484; 85025; 87040; 87070; 87086; 87205; 87426; 87804; 93005; 93306; 94640; 97163; G0378